=== PATIENT | female | born 1965 | race Caucasian/White ===

== ENCOUNTER 2022-11-15 10:27 | Outpatient (CLI) | payer OTHER, SELFPAY ==
[2022-11-15 19:09] LABS: Basophils Absolute Auto 0.1 K/mm3 (0.0-0.1); Basophils Percent Auto 0.8 % (0.2-1.2); Eosinophils Absolute Auto 0.4 K/mm3 (0-0.3); Eosinophils Percent Auto 3.9 % (0-4.4); Hematocrit 44.1 % (37.0-47.0); Hemoglobin 14.2 g/dL (12.0-15.0); Immature Granulocyte Absolute 0.02 K/mm3 (0.00-0.031); Immature Granulocyte Percent A 0.2 % (0-0.5); Lymphocytes Absolute Auto 2.68 K/mm3 (0.9-3.2); Lymphocytes Percent Auto 29.5 % (18.3-44.2); Mean Corpuscular HGB Conc 32.2 g/dl (32-36); Mean Corpuscular Hemoglobin 32.1 pg (26-34); Mean Corpuscular Volume 99.5 fl (80-100); Mean Platelet Volume 10.1 fl (7.4-10.4); Monocytes Absolute Auto 0.5 K/mm3 (0.1-0.6); Monocytes Percent Auto 5.9 % (2.6-8.5); Neutrophils Absolute Auto 5.4 K/mm3 (1.3-6.7); Neutrophils Percent Auto 59.7 % (45.5-73.1); Platelet Count Result 275 k/mm3 (150-375); Red Blood Count 4.43 M/mm3 (4.2-5.4); Red Cell Distribution Width 13.3 % (11.5-14.5); White Blood Count 9.1 K/mm3 (4.5-10.0)
[2022-11-15 19:13] LABS: Anion Gap 8 mmol/L (8-16); Blood Urea Nitrogen 17 mg/dL (7-17); Calcium 9.2 mg/dL (8.4-10.2); Carbon Dioxide 26 mmol/L (22-30); Chloride 109 mmol/L (98-107); Estimated Glomerular Filt Rate > 60; Glucose 75 mg/dL (65-110); Potassium 4.3 mmol/L (3.4-5.0); Sodium 143 mmol/L (137-145)
== END 2022-11-15 10:28 | disposition home or self-care (01) ==
LOC: ANHGOSHLAB 10:39
PROVIDERS: Visit Provider Neurological Surgery
DX: G89.4 Chronic pain syndrome (principal); M96.1 Postlaminectomy syndrome, not elsewhere classified
CPT/HCPCS: 36415; 80048; 85025

== ENCOUNTER 2025-04-07 13:34 | Emergency (ER) | payer MEDICAID, SELFPAY ==
[2025-04-07] VITALS (20 sets, daily range): BP systolic 70–124; BP diastolic 52–84; PULSE 51–94; RESP 11–22; TEMP 36.7; O2SAT 90–100
--- NOTE | ~2025-04-07 | XR_ITS ---
CHEST RADIOGRAPH CLINICAL HISTORY: shortness of breath . COMPARISON: None available TECHNIQUE: Single portable view of the chest. FINDINGS Spinal stimulator projects over the mediastinum and right upper quadrant. The remainder of the cardiomediastinal silhouette is otherwise unremarkable. The lungs are clear. IMPRESSION: No focal infiltrate or effusion. Reviewed, dictated and finalized at location A.
--- NOTE | 2025-04-07 13:40 | ECG_ITS ---
Test Date: 2025-04-07 14:04:28 Measurements Intervals [place] Rate: 49 P: 60 HI: 146 QRS: 46 QRSD: 105 T: 52 QT: 450 QTc: 409 Interpretive Statements SINUS BRADYCARDIA INCOMPLETE RIGHT BUNDLE BRANCH BLOCK ABNORMAL ECG No previous ECG available for comparison Electronically Signed On 04-07-2025 14:50:01 CDT by Adryan Espinoza D.O.
--- NOTE | 2025-04-07 13:56 | ED.SEIZURE ---
HPI - Seizure General Chief Complaint: Seizure Stated Complaint: seizure Time Seen by Provider: 04/07/25 13:36 History of Present Illness HPI Narrative: This is a 60-year-old female with history of rapid heart rate and remote history of seizures who presents the ED via EMS for seizure. Per EMS, they were called by patient's boyfriend is patient had a seizure the last approximately 2 minutes. Per EMS, on their arrival, patient was longer seizing and was started answering questions appropriately. Patient reports that she was feeling fine today until she began to feel foggy in the head. She states that she slid down against the wall and then does not remember anything after that. She reports that she does feel better at this time. Denies any changes in her medications. He does smoke marijuana daily. Related Data Allergies Allergy/AdvReac Type Severity Reaction Status Date / Time buspirone (From BuSpar) Allergy Severe Anaphylaxis Verified 04/07/25 14:38 fluoxetine (From Prozac) Allergy Severe Anaphylaxis Verified 04/07/25 14:38 Review of Systems Review of Systems: Gen.: Denies fevers or chills Eyes: Denies eye pain or visual change ENT: Denies congestion Respiratory: Denies shortness of breath or cough CV: Denies chest pain or palpitations GI: Denies abdominal pain nausea, emesis or diarrhea denies burning, urgency, frequency or hematuria Musculoskeletal: Denies back pain or muscle pain Neuro: Denies numbness, tingling, weakness or focal weakness Skin: Denies rash Except as documented, all other systems reviewed and negative Exam Narrative: APPEARANCE: No acute distress, nontoxic, resting in bed EYES: EOMI HEENT: Normocephalic, atraumatic, OMM RESPIRATORY: No respiratory distress Clear to auscultation bilaterally with no rhonchi wheezing or rales. CARDIOVASCULAR: Regular rate and rhythm without murmurs rubs or gallops. ABDOMINAL: Soft, nontender, nondistended, no rebound or guarding MUSCULOSKELETAl: Moves all extremities. No clubbing, cyanosis or edema. NEURO: Awake and alert. Following commands, speech normal, no focal deficits SKIN:: Warm, dry. No rashes lesions or abrasions PSYCHIATRIC: Normal affect/mood, Course Vital Signs Vital signs: Vital Signs Pulse Rate 64 04/07/25 13:40 Respiratory Rate 11 L 04/07/25 13:40 Blood Pressure 70/52 L 04/07/25 13:40 Pulse Oximetry 93 04/07/25 13:40 Temperature 98.0 F 04/07/25 13:41 Pulse Rate 65 04/07/25 16:32 Respiratory Rate 18 04/07/25 16:32 Blood Pressure 103/63 04/07/25 16:32 Pulse Oximetry 100 04/07/25 16:32 Oxygen Delivery Room Air 04/07/25 13:41 MDM - Seizure MDM Narrative Medical decision making narrative: 60-year-old female that presented to the ED for seizure activity. On initial evaluation, patient was somewhat lethargic but was answering all questions appropriately. She was noted to be hypotensive to 70/52 with heart rate in the 40s to 50s. BGM normal. She was given 2 L LR with improvement of her blood pressures to 110s/60s. She did have continued improvement of her lethargy. UA positive for cannabinoids. Patient is on metoprolol. It is possible the patient may have had an excessive response to her metoprolol today causing some of her symptoms and and directly causing her to a seizure or seizure-like activity. Patient does feel much better at this time. She does follow with a neurologist which I advised her to seek follow-up with. Patient and андрей were agreeable to this plan. Given strict return precautions. Differential Diagnosis Differential diagnosis: Likely generalized seizure and other (alcohol withdrawal, drug intoxication, electrolyte abnormality, arrhythmia) Lab Data 04/07/25 14:00 04/07/25 14:00 Labs: Lab Results 04/07/25 04/07/25 04/07/25 Range/Units 13:50 14:00 15:41 WBC 7.0 (4.5-10.0) K/mm3 RBC 3.65 L (4.2-5.4) M/mm3 Hgb 11.8 L (12.0-15.0) g/dL Hct 36.5 L (37.0-47.0) % MCV 100.0 (80-100) fl MCH 32.3 (26-34) pg MCHC 32.3 (32-36) g/dl RDW 13.8 (11.5-14.5) % Plt Count 209 (150-375) k/mm3 MPV 9.6 (7.4-10.4) fl Immature Gran % (Auto) 0.3 (0-0.5) % Neut % (Auto) 45.9 (45.5-73.1) % Lymph % (Auto) 43.4 (18.3-44.2) % [place] % (Auto) 5.7 (2.6-8.5) % Eos % (Auto) 3.8 (0-4.4) % Baso % (Auto) 0.9 (0.2-1.2) % Lymph # (Auto) 3.05 (0.9-3.2) K/mm3 [place] # (Auto) 0.4 (0.1-0.6) K/mm3 Eos # (Auto) 0.3 (0-0.3) K/mm3 Baso # (Auto) 0.1 (0.0-0.1) K/mm3 Abs Immat Gran (auto) 0.02 (0.00-0.031) K/mm3 Absolute Neuts (auto) 3.2 (1.3-6.7) K/mm3 Absolute Nucleated RBC 0.000 (0.0-0.012) K/mm3 Nucleated RBC % 0.0 (0.0-0.2) % PT 14.2 (11.1-14.7) Seconds INR 1.1 APTT 32.2 (22.3-36.8) Seconds Sodium 138 (137-145) mmol/L Potassium 4.5 (3.4-5.0) mmol/L Chloride 110 H (98-107) mmol/L Carbon Dioxide 22 (22-30) mmol/L Anion Gap 6 (4-12) mmol/L BUN 11 D (7-17) mg/dL Creatinine 0.94 (0.7-1.0) mg/dL Estim Creat Clear Calc 42 ml/min Estimated GFR > 60 (59 - ) Glucose 109 (65-110) mg/dL POC Capillary Glucose 114 H (65-105) mg/dl Lactic Acid 2.0 (0.7-2.0) mmol/L Calcium 9.0 (8.4-10.2) mg/dL Phosphorus 4.4 (2.5-4.5) mg/dL Total Bilirubin 0.7 (0.2-1.3) mg/dL AST 29 (14-36) U/L ALT 13 (6-35) U/L Alkaline Phosphatase 47 (38-126) U/L C-Reactive Protein < 0.5 (<1.0) mg/dL Total Protein 6.1 L (6.3-8.2) g/dL Albumin 3.5 (3.5-5.1) g/dL Urine Color Yellow (Yellow) Urine Appearance Cloudy H (Clear) Urine pH 7.0 (5.0-9.0) Ur Specific [place] 1.017 (1.001-1.035) Urine Protein Trace (Negative) mg/dL Urine Glucose (UA) Negative (Negative) mg/dL Urine Ketones Negative (Negative) mg/dL Ur Blood (Man) Negative (Negative) Urine Nitrate Negative (Negative) Urine Bilirubin Negative (Negative) Urine Urobilinogen 1.0 (<2.0) mg/dL Leukocyte Esterase Rfl Trace H (Negative) JONEL/UL Urine RBC 0-2 (0-2) /hpf Urine WBC 0-5 (0-3) /hpf Ur Squamous Epith Cells None seen (Few) /hpf Urine Bacteria 4+ /hpf Urine Casts 3-5 Urine Opiates Screen Negative (Negative) Urine Methadone Screen Negative (Negative) Ur Barbiturates Screen Negative (Negative) Ur Phencyclidine Scrn Negative (Negative) Ur Amphetamine Screen Negative (Negative) U Benzodiazepines Scrn Negative (Negative) Urine Cocaine Screen Negative (Negative) U Cannabinoids Screen Positive A (Negative) Imaging Data My impression: Impressions Chest X-Ray 04/07/25 15:07 IMPRESSION: No focal infiltrate or effusion. ECG Data EKG #1: Attestation: I personally reviewed and interpreted this ECG as follows: ECG completion date: 04/07/25 ECG completion time: 14:04 Prior ECG tracings: not available for review EKG Interpretation: bradycardia, sinus rhythm, no ectopy, no ST changes, normal QRS, normal QT, NL axis and no acute changes Discharge Plan Discharge Clinical Impression: Generalized seizure Patient Disposition: Home Condition: Stable Instructions: Antibiotic Form, Generalized Tonic Clonic Seizures (ED) Additional Instructions: Follow up with your neurologist for further evaluation. Patient Language: Danish Follow-up/Referrals: UNKNOWN,DOCTOR [Primary Care Provider] -
[2025-04-07 14:16] LABS: Hematocrit 36.5 % (37.0-47.0); Hemoglobin 11.8 g/dL (12.0-15.0); Immature Granulocyte Percent A 0.3 % (0-0.5); Lymphocytes Absolute Auto 3.05 K/mm3 (0.9-3.2); Mean Corpuscular HGB Conc 32.3 g/dl (32-36); Mean Corpuscular Hemoglobin 32.3 pg (26-34); Mean Corpuscular Volume 100.0 fl (80-100); Nucleated Red Blood Cells Absolute Auto 0.000 K/mm3 (0.0-0.012); Nucleated Red Blood Cells Perc 0.0 % (0.0-0.2); Platelet Count Result 209 k/mm3 (150-375); Red Blood Count 3.65 M/mm3 (4.2-5.4); White Blood Count 7.0 K/mm3 (4.5-10.0)
--- OUTSIDE RECORDS SUMMARY | 2025-04-07 14:21 | XMS_ITS | Encounter Summary ---
Author Organization [facility] Address [address] [place] [address] Phone Care Team Providers Care Intensive Care Unit Registered Nurse Name Role Phone Shereen Urrutia APRN, TELECOM SALES CONSULTANT Unavailable [phone] Michelle Erazo Primary Care Provider + Delfino Smith MD Unavailable Rosey Martin APRN, GLOVE TURNER AND FORMER Unavailable Kathleen Godinez RN Unavailable Unavaila ble Reason for Visit * Reason Comments Medication Refill Encounter Details Date Type Department Care Team (Late st Contact Info) Description 12/04/2022 Refill [facility] - Neurology [facility] [address] [place] [id number] Rosey Martin APRN, GLOVE TURNER AND FORMER [address] [place] [address] Medication Refill Social History Tobacco Use Types Packs/Day Years Used Date Smoking Tobacco: Every Day Cigarettes 1 40 Smokeless Tobacco: Never Alcohol Use Standard Drinks/Week Comments Yes 0 (1 standard drink = 0.6 oz pur e alcohol) social drinking PHQ-2 Answer Date Recorded Total Score - Questions 1-9 0 01/2022 Education Answer Date Recorded What is the highest level of school you have completed or the highest degree you have received? 12th grade 12/28/2021 Sexually Active Control Partners Comments Yes Male Comments No Sex and Gender Information Value Date Recorded Sex Assigned at Not on file Legal Sex Female 2:34 PM CDT Gender Identity Not on file Sexual Orientation Not on file COVID-19 Exposure Response Date Recorded In the last 10 days, have yo u been in contact with someone who was confirmed or suspected to have Coronavirus/COVID-19? No / Unsure 11/18/2022 6:33 AM CDT documented as of this encounter Plan of Treatment Upcoming Encounters Date Type Department Care Team (Late st Contact Info) Description 07/07/2025 3:30 PM RECORD TABULATING CLERK Office Visit [facility] Medical [facility] [address] [place] [address] Michelle Erazo, JUANCARLOS [address] [place] [address] documented as of this encounter Goals Goal Patient Goal Type Associated Problems Recent Progress Patient-Stated? Author I want a way to cope. Learn coping mechanisms. Behavioral Health On track( 022 2:51 PM CDT) Yes Selin Mo, STUDENT DEAN Note: Goal Reviewed today with: patient Readiness to change: Ready to change Department associated with goal: [facility] Steps to achieve goal: will identify at least two coping skills/activities/habits that have helped to manage anxiety in the past within the next 8-10 sessions will identify at least three new coping skills/activities/habits that may help to prevent and/or cope with anxiety within the next 8-10 sessions 3. will identify a plan to implement coping skills and follow this plan for two weeks and evaluate the impact on anxiety within the next 8-10 sessions 4. Will attend individual and/or group therapy at least 1x/month documented as of this encounter Visit Diagnoses Diagnosis Chronic migraine w/o aura w/o status migrainosus, not intractable Chronic migraine without aura, without mention of intractable migraine without mention of status migrainosus documented in this encounter Additional Health Concerns Infection Onset Date Last Indicated Resolved Time COVID - 19 12/22/2022 12/22/2022 01/01/2023 12:1 6 AM CDT Assessment Noted Time PHQ-9 Depression Total Score: 0 12/29/19 22 1:59 PM CDT documented as of this encounter Care Teams Intensive Care Unit Registered Nurse Relationship Specialty Start Date End Date Castro Laurel, PAC [address] [place] [address] PCP - General Physician Title Searcher 10/01/21 Shereen Urrutia APRN, TELECOM SALES CONSULTANT [address] [place] [id number] Obstetrics & Gynecology 07/03/18 Delfino Smith MD [address] [place] [address] Consulting Physician Pulmonary Disease 07/22/23 Rosey Martin APRN, [employer]OVE T[employer]NER [employer] FORMER [address] [place] [address] Nurse Practitioner Advanced Practice Nurse 06/25/23 Kathleen Godinez, RN [place] OnCall Exterior Work Helper 09/01/24 10/20/24 documented as of this encounter
--- OUTSIDE RECORDS SUMMARY | 2025-04-07 14:21 | XMS_ITS | Encounter Summary ---
Author Organization [facility] Address [address] [place] [address] Phone Care Team Providers Care Spring Winder Name Role Phone Shereen Urrutia APRN, DANCE COSTUME DESIGNER Unavailable [phone] Michelle Erazo Primary Care Provider + Delfino Smith MD Unavailable Rosey Martin APRN, GEOGRAPHY PROFESSOR Unavailable Kathleen Godinez RN Unavailable Unavaila ble Reason for Visit * Reason Comments Medication Refill Encounter Details Date Type Department Care Team (Late st Contact Info) Description 09/23/2022 Refill [facility] - Neurology [facility] [address] [place] [id number] Rosey Martin APRN, GEOGRAPHY PROFESSOR [address] [place] [address] Medication Refill Social History Tobacco Use Types Packs/Day Years Used Date Smoking Tobacco: Every Day Cigarettes 0.3 40 Smokeless Tobacco: Never Alcohol Use Standard [...] suspected to have Coronavirus/COVID-19? No / Unsure 09/16/2022 9:06 AM ORDNANCE ENGINEER documented as of this encounter Plan of Treatment Upcoming Encounters Date Type Department Care Team (Late st Contact Info) Description 07/07/2025 3:30 PM ORDNANCE ENGINEER Office Visit [facility] Medical [facility] [address] [place] [address] Michelle Erazo, JUANCARLOS [address] [place] [address] documented as of this encounter Goals Goal Patient Goal Type Associated Problems Recent Progress Patient-Stated? Author I want a way to cope. Learn coping mechanisms. Behavioral Health On track( 022 2:51 PM CDT) Yes Selin Mo, MEDICATION COORDINATOR Note: Goal Reviewed today with: patient Readiness to change: Ready to change Department associated with goal: [facility] Steps to achieve goal: [...] documented as of this encounter Visit Diagnoses Not on filedocumented in this encounter Additional Health Concerns Infection Onset Date Last Indicated Resolved Time COVID - 19 12/22/2022 12/22/2022 01/01/2023 12:1 6 AM CDT Assessment Noted Time PHQ-9 Depression Total Score: 0 12/29/19 22 1:59 PM CDT documented as of this encounter Care Teams Spring Winder Relationship Specialty Start Date End Date Michelle ErazoJUANCARLOS [address] [place] [address] PCP - General Physician Industrial Workers 10/01/21 Shereen Urrutia, BIODIESEL PROCESS CONTROL TECHNICIAN, DANCE COSTUME DESIGNER [address] [place] [address] Obstetrics & Gynecology 07/03/18 Delfino Smith MD [address] [place] [address] Consulting Physician Pulmonary Disease 07/22/23 Rosey Martin, BIODIESEL PROCESS CONTROL TECHNICIAN, GEOGRAPHY PROFESSOR [address] [place] [address] Nurse Practitioner Advanced Practice Nurse 06/25/23 Kathleen Godinez, ETTA [place] OnCall Toy Assembly Supervisor 09/01/24 10/20/24 documented as of this encounter
--- OUTSIDE RECORDS SUMMARY | 2025-04-07 14:21 | XMS_ITS | Encounter Summary ---
Author Organization [facility] Healthcare Address [address] [place] [address] Care Team Providers Care Stock Checker Name Role Phone Krys Banerjee MD Primary Care Provider [phone] Encounter Details Date Type Department Care Team (Late st Contact Info) Description 03/24/2020 Telephone [facility] [address] [place] [address] Royer Espinal, RT Social History Tobacco Use Types Packs/Day Years Used Date Smoking Tobacco: Every Day Cigarettes Smokeless Tobacco: Never Alcohol Use Standard Drinks/Week Comments Not Currently 0 (1 standard drink = 0.6 oz pur e alcohol) 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
--- OUTSIDE RECORDS SUMMARY | 2025-04-07 14:21 | XMS_ITS | Encounter Summary ---
Author Organization [facility] Address [address] [place] [address] Phone Care Team Providers Care Follow Up Rep Name Role Phone Shereen Urrutia APRN, MOLDER SWEEP Unavailable [phone] Michelle Erazo Primary Care Provider + Delfino Smith MD Unavailable Rosey Martin APRN, MEDICAL RECORDS CUSTODIAN Unavailable + [phone] Kathleen Godinez RN Unavailable Unavaila ble Reason for Visit * Reason Comments Medication Refill Encounter Details Date Type Department Care Team (Late st Contact Info) Description 11/06/2022 Refill [facility] Medicine [facility] [address] [place] [address] Michelle Erazo, PAC [address] [place] [address] Medication Refill Social History Tobacco Use Types [...] suspected to have Coronavirus/COVID-19? No / Unsure 11/07/2022 1:48 PM CDT documented as of this encounter Miscellaneous Notes * Telephone Encounter - Darlene Munguia RN - 11/06/2022 12:44 PM CDT Refill requested too soon. documented in this encounter Plan of Treatment Upcoming Encounters Date Type Department Care Team (Late st Contact Info) Description 07/07/2025 3:30 PM ADMINISTRATION PHYSICIAN Office Visit [facility] - Family [facility] [address] [place] [address] Michelle Erazo, [facility] [address] [place] [address] documented as of this encounter Goals Goal Patient Goal Type Associated Problems Recent Progress Patient-Stated? Author I want a way to cope. Learn coping mechanisms. Behavioral Health On track( 022 2:51 PM CDT) Yes Selin Mo, FINISHING ROOM OPERATOR Note: Goal Reviewed today with: patient Readiness to change: Ready to change Department associated with goal: [facility] Steps to achieve [...] as of this encounter Visit Diagnoses Diagnosis Anxiety Anxiety state, unspecified documented in this encounter Additional Health Concerns Infection Onset Date Last Indicated Resolved Time COVID - 19 12/22/2022 12/22/2022 01/01/2023 12:1 6 AM CDT Assessment Noted Time PHQ-9 Depression Total Score: 0 12/29/19 1:59 PM CDT documented as of this encounter Care Teams Follow Up Rep Relationship Specialty Start Date End Date Michelle Erazo PAC [address] [place] [address] PCP - General Physician Physician In Private Practice 10/01/21 Shereen Urrutia APRN, MOLDER SWEEP [address] [place] [address] Obstetrics & Gynecology 07/03/18 Delfino Smith MD [address] [place] [address] Consulting Physician Pulmonary Disease 07/22/23 Rosey Martin APRN, MEDICAL RECORDS CUSTODIAN [address] [place] [address] Nurse Practitioner Advanced Practice Nurse 06/25/23 Kathleen Godinez RN [place] OnCall Makeup Sales Advisor 09/01/24 10/20/24 documented as of this encounter
--- OUTSIDE RECORDS SUMMARY | 2025-04-07 14:21 | XMS_ITS | Clinical Summary ---
Author Organization [facility] Address [address] [place] [address] Care Team Providers Care Meal Attendant Name Role Phone Krys Banerjee MD Primary Care Provider [phone] Allergies Active Allergy Reactions Criticality Noted Date Comments Buspirone Anaphylaxis High 10/14/2018 Fluoxetine Unknown Low 10/14/2018 Sulfa (Sulfonamide Antibiotics) Anaphylaxis High Medications cholecalciferol (VITAMIN D-3) 2,000 unit capsule Take 2,000 Units by mouth 2 (two) times a day 9 Active albuterol HFA (PROVENTIL HFA,VENTOLIN HFA,PROAIR HFA) 90 mcg/actuation inhaler Inhale 4 (four) times a day as needed Active pantoprazole DR (PROTONIX) 40 mg EC tablet Take 40 mg by mouth daily 9 Active fluticasone propionate (FLONASE) 50 mcg/actuation nasal spray Administer 2 sprays into each nostril daily Active aspirin 81 mg chewable tablet Chew 1 tablet every day by oral route. Active EPINEPHrine (EPIPEN) 0.15 mg/0.3 mL injection syringeIndicati ons:Anaphylaxis Inject 1 Syringe into the muscle as instructed Active buPROPion (WELLBUTRIN) 100 mg tablet Take 100 mg by mouth 2 (two) times a day Active lovastatin (MEVACOR) 20 mg tablet Take 20 mg by mouth nightly Active aspirin-dipyrid amole (AGGRENOX) 25-200 mg per 12 hr capsuleIndicati ons:Prevention of Cerebral Thrombosis Take 1 capsule by mouth 2 (two) times a day Active cyanocobalamin (Vitamin B-12) 100 mcg tabletIndicatio ns:Prevention of Vitamin B12 Deficiency Take 200 mcg by mouth daily Active naproxen (NAPROSYN) 375 mg tablet Take 1 tablet (375 mg total) by mouth 2 (two) times a day with meals P.r.n. pain. Collaborating physician Sumeet Ibarra MD 20 tablet 1 Active acetaminophen (TYLENOL) 500 mg tablet Take 2 tablets (1,000 mg total) by mouth every 8 (eight) hours as needed for pain for up to 20 doses 40 tablet 1 Active topiramate (TOPAMAX) 50 mg tabletIndicatio ns:Chronic migraine without aura without status migrainosus, not intractable TAKE 1 TABLET BY MOUTH TWICE A DAY 60 tablet 3 2 Active Active Problems Problem Noted Date Diagnosed Date Sprain of right knee 12/21/2020 Screen for colon cancer 11/02/2020 Overview (11/02/2020): Added automatically from request for surgery [id number] Asthma 07/03/2020 DDD (degenerative disc disease), lumbosacral 04/2020 Depression 07/03/2020 Iron deficiency 07/03/2020 Migraines 07/03/2020 Osteoporosis 07/03/2020 Rapid heart rate 07/03/2020 Pain in both lower extremities 05/24/2020 Chronic migraine without aur a without status migrainosus, not intractable 04/26/2020 Occipital neuralgia of left side 04/26/2020 Cannabis dependence, continuous 08/02/2019 Female stress incontinence 08/02/2019 GERD (gastroesophageal reflux disease) 9 Assessment & Plan (03/27/2021 2:19 PM CDT): egd History of migraine 08/02/2019 RLS (restless legs syndrome) 08/02/2019 Xerosis cutis 05/07/2019 Radiculopathy, cervical 01/04/2019 Overview (01/04/2019): Added automatically from request for surgery [id number] Pain of breast 12/22/2018 Pain in pelvis 12/22/2018 History of fusion of cervical spine 11/04/2018 Cannabis abuse 10/15/2018 Major depressive disorder, r ecurrent episode, moderate with anxious distress 08/11/2018 Surgical History Surgery Date Site/Laterality Comments CARPAL TUNNEL RELEASE Bilateral CERVICAL FUSION x 2 HYSTERECTOMY DIAGNOSTIC LAPAROSCOPY x 3 SPINE SURGERY Fusion x2 SPINAL CORD STIMULATOR IMPLANT COLONOSCOPY 12/25/2020 1st Medical History Medical History Date Comments Hypotension Tachycardia Cardiac Catheriz ation and work-up negative, done [place] Hyperlipidemia Asthma GERD (gastroesophageal reflux disease) Peptic ulceration 1987 Depression Arthritis Generalized Osteoarthritis Back OCD (obsessive compulsive disorder) Migraine COPD (chronic obstructive pu lmonary disease) Family History Medical History Relation Name Comments Stroke Mother Relation Name Status Comments Mother Social History Tobacco Use Types Packs/Day Years Used Date Smoking Tobacco: Every Day Cigarettes Smokeless Tobacco: Never Tobacco Cessation:Ready to Q uit: Yes; Counseling Given: Yes Alcohol Use Standard Drinks/Week Comments Not Currently 0 (1 standard drink = 0.6 oz pur e alcohol) 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 PHQ-2 Answer Date Recorded PHQ-2 Total Score (If total score is 3 or more points, staff should administer the PHQ-9) 2 11/30/2020 Personal Safety Answer Date Recorded Getting School Help Needed Not on file 10/25 Comments No Sex and Gender Information Value Date Recorded Sex Assigned at Not on file Legal Sex Female 3:26 PM SECURITY TECHNICIAN Gender Identity Not on file Sexual Orientation Not on file Obstetrics History Para Term AB IAB SAB Ectopic Multiple Livin g Live Births 4 3 3 0 1 0 1 0 0 3 3 Date Outcome GA Total Labor Labor/2nd/3rd Weight Sex Type Anes PTL Cathryn A1 A5 Name Clin Term Term Term SAB Last Filed Vital Signs Vital Sign Reading Time Taken Comments Blood Pressure 136/84 04/30/2021 4:45 AM CDT Pulse 74 04/30/2021 4:45 AM CDT Temperature 36.5 C (97.7 F) 04/30/2021 1:47 AM CDT Respiratory Rate 18 04/30/2021 4:45 AM CDT Oxygen Saturation 98% 04/30/2021 4:45 AM CDT Inhaled Oxygen Concentration - - Weight 49.9 kg (110 lb) 04/30/2021 1:47 AM CDT Height 160 cm (5' 3) 04/30/2021 1:47 AM CDT Body Mass Index 19.49 04/30/2021 1:47 AM CDT Plan of Treatment Health Maintenance Due Date Last Done Comments Hepatitis C Screening 1965 Hepatitis B Screening 1983 Regular Well Visit/Exam 18-64 1983 Zoster Vaccine (1 of 2) 2015 Depression Screening 11/30/2021 11/30/2020 Covid-19 Vaccine (4 - 2023-2 5 season) 2024 10/13/2021, 04/16/2021, 03/26/2021 Breast Cancer Screening-Mammogram 01/20/2025 01/21/2024, 01/21/2024, 12/06/2021 Influenza Vaccine (#1) 2025 , 09/16/2022, 09/18/2021, Additional history exists Colon Cancer Screening-Colonoscopy 12/25/2030 12/25/2020 DTaP/Tdap/Td Vaccine (5 - Td or Tdap) 04/19/2034 04/19/2024, 03/13/2023, 12/12/2019, Additional history exists Colon Cancer Screening-CT Colonography Discontinued 12/25/2020 Colon Cancer Screening-DNA Stool Discontinued 12/26/19 Colon Cancer Screening-FIT Discontinued 12/25/2020 Colon Cancer Screening-Sigmoidoscopy Discontinued 12/25/2020 Pneumococcal vaccine <65 Completed 10/15/2022, 04/2018 Medical Devices Implanted Type Area Campus Executive Director Device Identifier Shelf Expiration Date Model / Serial / Lot [employer] [id number] Octrode 90cm 8 Electrode 3mm 4mm Space Lead Neurostimulator - [id number] - [id number] Implanted:Qty: 1 on 02/05/2019 by Jason Cruz MD at [facility] N/A: Cervical -Thoraci c Spine [employer] 12/07/2020 [id number] / [id number] / [employer] 3189ans Octrode 90cm 8 Electrode 3mm 4mm Space Lead Neurostimulator - [id number] - [id number] Implanted:Qty: 1 on 02/05/2019 by Jason Cruz MD at [facility] N/A: Cervical -Thoraci c Spine [employer] 11/11/2020 [id number] / [id number] / [employer] 1192 Murphy-Lock [place] Lead - [id number] Implanted:Qty: 2 on 02/05/2019 by Jason Cruz MD at [facility] N/A: Cervical -Thoraci c Spine [employer] 10/18/2020 1192 / / [id number] [employer] 3660 Contrlsys Proclaim Elite 4.95cmx5.55cm 5 Implantable Pulse Tonic - [id number] - [id number] Implanted:Qty: 1 on 02/05/2019 by Jason Cruz MD at [facility] N/A: Cervical -Thoraci c Spine [employer] 10/12/2020 3660 CONTRLSYS / [id number] / Procedures Procedure Name Priority Date/Time Associated Diagnosis Comments COLONOSCOPY 12/25/2020 8:42 AM CDT from Last 3 Months or Most Recently Relevant to Health Maintenance Results * COLONOSCOPY (12/25/2020 8:42 AM CDT) Anatomical Region Laterality Modality Other Narrative Procedure Note Sumeet Alegria MD - 12/25/2020 8:42 AM CDT [facility] Patient Name: Michelle Adkins Procedure Date: 12/25/2020 8:42 AM Date of : 1965 Admit Type: Outpatient Age: 55 Gender: Female Attending MD: Sumeet Alegria M.D. Room: [facility] ENDOSCOPY ROOM 2 Note Status: Finalized Patient Profile: Refer to note in patient chart for documentation of history and physical. Procedure: Colonoscopy Indications: Screening for colorectal malignant neoplasm, Thisis the patient's first colonoscopy Referring MD: Krys Banerjee M.D. Providers: Sumeet Alegria M.D. Impression: - Hemorrhoids found on perianal exam. - The entire examined colon is normal. - No specimens collected. Recommendation: - Discharge patient to home. - Resume previous diet. - Continue present medications. - Repeat colonoscopy in 10 years for screening purposes. - Return to primary care physician as previously scheduled. Medicines: Propofol per Anesthesia Complications: No immediate complications. Estimated Blood Loss: Estimated blood loss: none. Procedure: Pre-Anesthesia Assessment: - This assessment was completed [Time ofAssessment] prior to the administration of sedation. The benefits, risks and alternatives of theprocedure and sedation were discussed and informed consentwas obtained. All questions were answered. Please referto the signed informed consent document in the medical record. The bowel preparation used was Miralax and bisacodyl tablets via single dose instruction. The scope was passed under direct vision. TheColonoscope [id number] was introduced through the anus and advanced to the the cecum, identified by appendiceal orifice and ileocecal valve. The colonoscopy was performed without difficulty. The patient tolerated the procedure well. The qualityof the bowel preparation was excellent. Findings: Hemorrhoids were found on perianal exam. The colon (entire examined portion) appeared normal. Electronically signed by Sumeet Alegria M.D. Sumeet Alegria M.D. 12/25/2020 10:35:47 AM Number of Addenda: 0 Note Initiated On: 12/25/2020 8:42 AM Procedure Code(s): --- Professional --- G0121, Colorectal cancer screening; colonoscopy on individual not meeting criteria for high risk Diagnosis Code(s): --- Professional --- K64.9, Unspecified hemorrhoids Z12.11, Encounter for screening for malignant neoplasm of colon CPT copyright 2019 [employer]. All rights reserved. The codes documented in this report are preliminary and upon benefits clerk reviewmay be revised to meet current compliance requirements. Recognized by the [employer] Society [employer] for promoting quality in endoscopy Sumeet Alegria MD ENDOSCOPY PROCEDURES Final Re sult from Last 3 Months or Most Recently Relevant to Health Maintenance Insurance MEDICARE [facility] MEDICARE HMO [employer] CHOICE MEDICARE PPO [facility] MEDICARE [facility] MEDICARE ADVANTAGE Advance Directives For more information, please contact: [phone] * Full Code (Latest Code Status on File) Date Activated Date Inactivated Comments 04/27/2021 7:32 AM 04/27/2021 1:13 PM * Full Code Date Activated Date Inactivated Comments 04/27/2021 7:32 AM 04/27/2021 7:32 AM * Full Code Date Activated Date Inactivated Comments 12/25/2020 9:20 AM 12/25/2020 3:26 PM * Full Code Date Activated Date Inactivated Comments 02/05/2019 11:50 AM 02/05/2019 4:06 PM Care Teams Meal Attendant Relationship Specialty Start Date End Date Krys Banerjee MD PCP - General Internal Medicine 09/01/19
--- OUTSIDE RECORDS SUMMARY | 2025-04-07 14:21 | XMS_ITS | Encounter Summary ---
Author Organization [facility] Address [address] [place] [address] Phone Care Team Providers Care Public Health Nurse Name Role Phone Shereen Urrutia APRN, CLEANERS Unavailable [phone] Michelle Erazo Primary Care Provider + Delfino Smith MD Unavailable Rosey Martin APRN, MOVIE PRODUCER Unavailable Kathleen Godinez RN Unavailable Unavaila ble Reason for Visit * Reason Comments Medication Refill Encounter Details Date Type Department Care Team (Late st Contact Info) Description 09/14/2022 Refill [facility] - Neurology [facility] [address] [place] [id number] Rosey Martin APRN, MOVIE PRODUCER [address] [place] [address] Medication Refill Social History Tobacco Use Types [...] Coronavirus/COVID-19? No / Unsure 09/16/2022 9:06 AM WHITE GOODS APPLIANCE TECH documented as of this encounter Plan of Treatment Upcoming Encounters Date Type Department Care Team (Late st Contact Info) Description 07/07/2025 3:30 PM WHITE GOODS APPLIANCE TECH Office Visit [facility] [address] [place] [address] Michelle Erazo, JUANCARLOS [address] [place] [address] documented as of this encounter Goals Goal Patient Goal Type Associated Problems Recent Progress Patient-Stated? Author I want a way to cope. Learn coping mechanisms. Behavioral Health On track( 022 2:51 PM CDT) Yes Selin Mo, TAX ASSOCIATE Note: Goal Reviewed today with: patient Readiness to change: Ready to change Department associated with goal: [facility] Steps to achieve [...] as of this encounter Visit Diagnoses Diagnosis RLS (restless legs syndrome) Restless legs syndrome (RLS) documented in this encounter Additional Health Concerns Infection Onset Date Last Indicated Resolved Time COVID - 19 12/22/2022 12/22/2022 01/01/2023 12:1 6 AM CDT Assessment Noted Time PHQ-9 Depression Total Score: 0 12/29/19 22 1:59 PM CDT documented as of this encounter Care Teams Public Health Nurse Relationship Specialty Start Date End Date Michelle Erazo PAC [address] [place] [address] PCP - General Physician Network Coordinator 10/01/21 Shereen Urrutia APRN, CLEANERS [address] [place] [address] Obstetrics & Gynecology 07/03/18 Delfino Smith MD [address] [place] [id number] Consulting Physician Pulmonary Disease 07/22/23 Rosey Martin APRN, MOVIE PRODUCER [address] [place] [address] Nurse Practitioner Advanced Practice Nurse 06/25/23 Kathleen Godinez, RN [place] OnCall Fleet Assistant 09/01/24 10/20/24 documented as of this encounter
--- OUTSIDE RECORDS SUMMARY | 2025-04-07 14:21 | XMS_ITS | Encounter Summary ---
Author Organization [facility] Healthcare Address [address] [place] [address] Care Team Providers Care Anglesmith Name Role Phone Krys Banerjee MD Primary Care Provider [phone] Reason for Visit * Reason Onset Date Comments Scheduling Appointments 01/11/2021 Confirmi ng mammogram appt Encounter Details Date Type Department Care Team (Late st Contact Info) Description 01/11/2021 Telephone [facility] [address] [place] [address] Harleen Turcios RT Scheduling Appointments (Confirming mammogram appt) Social History Tobacco Use Types Packs/Day Years Used Date Smoking Tobacco: Every Day Cigarettes Smokeless Tobacco: Never Alcohol Use Standard Drinks/Week Comments Not Currently 0 (1 standard drink = 0.6 oz pur e alcohol) 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 PHQ-2 Answer Date Recorded PHQ-2 Total Score (If total score is 3 or more points, staff should administer the PHQ-9) 2 11/30/2020 Comments No Sex and Gender Information Value Date Recorded Sex Assigned at Not on file Legal Sex Female 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
--- OUTSIDE RECORDS SUMMARY | 2025-04-07 14:21 | XMS_ITS | Encounter Summary ---
Author Organization [facility] Address [address] [place] [address] Phone Care Team Providers Care Sandwich Hand Name Role Phone Shereen Urrutia APRN, EXPANSION JOINT BUILDER Unavailable [phone] Michelle Erazo Primary Care Provider + Delfino Smith MD Unavailable Rosey Martin APRN, PREDATORY ANIMAL HUNTER Unavailable Kathleen Godinez RN Unavailable Unavaila ble Reason for Visit * Reason Comments Medication Refill Encounter Details Date Type Department Care Team (Late st Contact Info) Description 09/06/2022 Refill [facility] - Neurology [facility] [address] [place] [phone] Rosey Martin APRN, PREDATORY ANIMAL HUNTER [address] [place] [address] Medication Refill Social History Tobacco Use Types [...] suspected to have Coronavirus/COVID-19? No / Unsure 09/04/2022 12:59 PM PARACHUTE OFFICER documented as of this encounter Plan of Treatment Upcoming Encounters Date Type Department Care Team (Late st Contact Info) Description 07/07/2025 3:30 PM PARACHUTE OFFICER Office Visit [facility] Medical [facility] [address] [place] [address] Michelle Erazo, JUANCARLOS [address] [place] [address] documented as of this encounter Goals Goal Patient Goal Type Associated Problems Recent Progress Patient-Stated? Author I want a way to cope. Learn coping mechanisms. Behavioral Health On track( 022 2:51 PM CDT) Yes Selin Mo, CENTRAL SUPPLY WORKER Note: Goal Reviewed today with: patient Readiness to change: Ready to change Department associated with goal: [facility] Steps to [...] documented as of this encounter Care Teams Sandwich Hand Relationship Specialty Start Date End Date Castro Laurel, PAC [address] [place] [address] PCP - General Physician Scrubber Machine Tender 10/01/21 Shereen Urrutia APRN, EXPANSION JOINT BUILDER [address] [place] [address] Obstetrics & Gynecology 07/03/18 Delfino Smith MD [address] [place] [address] Consulting Physician Pulmonary Disease 07/22/23 Rosey Martin APRN, PREDATORY ANIMAL HUNTER [address] [place] [address] Nurse Practitioner Advanced Practice Nurse 06/25/23 Kathleen Godinez, RN [place] OnCall Telephone Order Clerk 09/01/24 10/20/24 documented as of this encounter
--- OUTSIDE RECORDS SUMMARY | 2025-04-07 14:21 | XMS_ITS | Encounter Summary ---
Author Organization [facility] Address [address] [place] [address] Phone Care Team Providers Care Firer Kiln Name Role Phone Shereen Urrutia APRN, LIGHTNING PROTECTION INSTALLER Unavailable [phone] Michelle Erazo Primary Care Provider + Delfino Smith MD Unavailable Rosey Martin APRN, SENIOR QUALITY ASSURANCE ENGINEER Unavailable Kathleen Godinez RN Unavailable Unavaila ble Reason for Visit * Reason Comments Medication Refill Encounter Details Date Type Department Care Team (Late st Contact Info) Description 01/30/2022 Refill [facility] - Neurology [facility] [address] [place] [phone] Rosey Martin APRN, SENIOR QUALITY ASSURANCE ENGINEER [address] [place] [address] Medication Refill Social History Tobacco Use Types [...] suspected to have Coronavirus/COVID-19? No / Unsure 02/01/2022 2:23 PM CDT documented as of this encounter Plan of Treatment Upcoming Encounters Date Type Department Care Team (Late st Contact Info) Description 07/07/2025 3:30 PM VP CORPORATE PARTNERSHIPS Office Visit [facility] [address] [place] [address] Michelle Erazo, JUANCARLOS [address] [place] [address] documented as of this encounter Goals Goal Patient Goal Type Associated Problems Recent Progress Patient-Stated? Author I want a way to cope. Learn coping mechanisms. Behavioral Health On track( 022 2:51 PM CDT) Yes Selin Mo, BARREL RIFLER BUTTON Note: Goal Reviewed today with: patient Readiness to change: Ready to change Department associated with goal: [facility] Steps to achieve [...] documented as of this encounter Care Teams Firer Kiln Relationship Specialty Start Date End Date Michelle Erazo, [facility] [address] [place] [address] PCP - General Physician Flight Test Data Acquisition Technician 10/01/21 Shereen Urrutia, SUPERVISOR ERECTION SHOP, LIGHTNING PROTECTION INSTALLER [address] [place] [address] Obstetrics & Gynecology 07/03/18 Delfino Smith MD [address] [place] [address] Consulting Physician Pulmonary Disease 07/22/23 Rosey Martin, SUPERVISOR ERECTION SHOP, SENIOR QUALITY ASSURANCE ENGINEER [address] [place] [address] Nurse Practitioner Advanced Practice Nurse 06/25/23 Kathleen Godinez, ETTA [place] OnCall Physiologist 09/01/24 10/20/24 documented as of this encounter
--- OUTSIDE RECORDS SUMMARY | 2025-04-07 14:21 | XMS_ITS | Encounter Summary ---
Author Organization [facility] Address [address] [place] [address] Phone Care Team Providers Care Brazer Controlled Atmospheric Furnace Name Role Phone Shereen Urrutia APRN, DATA MANAGEMENT ASSOCIATE Unavailable [phone] Michelle Erazo Primary Care Provider + Delfino Smith MD Unavailable Rosey Martin APRN, LANDSCAPE HORTICULTURE INSTRUCTOR Unavailable + [phone] Kathleen Godinez RN Unavailable Unavaila ble Reason for Visit * Reason Comments Medication Refill Encounter Details Date Type Department Care Team (Late st Contact Info) Description 07/13/2023 Refill [facility] - Family Medicine [facility] [address] [place] [address] Michelle Erazo, PAC [address] [place] [address] Medication Refill Social History Tobacco Use Types Packs/Day Years Used Date Smoking Tobacco: Every Day Cigarettes 1 40 Smokeless Tobacco: Never Alcohol Use Standard Drinks/Week Comments Yes 0 (1 standard drink = 0.6 oz pur e alcohol) social drinking PHQ-2 Answer Date Recorded Total Score - Questions 1-9 0 12/25 Education Answer Date Recorded What is the [...] suspected to have Coronavirus/COVID-19? No / Unsure 06/27/2023 8:50 AM CDT documented as of this encounter Miscellaneous Notes * Telephone Encounter - Ana Herbert RN - 07/14/2023 8:16 AM CST Name from pharmacy: ATORVASTATIN 20 MG TABLET Will file in chart as: atorvastatin (LIPITOR) 20 MG Tablet The original prescription was discontinued on 01/22/2023 by Tasneem Acevedo RN for the followingreason: Dose adjustment. Taking 40 mg daily OR FINANCE MANAGER documented in this encounter Plan of Treatment Upcoming Encounters Date Type Department Care Team (Late st Contact Info) Description 07/07/2025 3:30 PM SENIOR FINANCE MANAGER Office Visit [facility] Medical [facility] [address] [place] [address] Michelle Erazo, JUANCARLOS [address] [place] [address] documented as of this encounter Goals Goal Patient Goal Type Associated Problems Recent Progress Patient-Stated? Author I want a way to cope. Learn coping mechanisms. Behavioral Health On track( 022 2:51 PM CDT) Yes Selin Mo, TAP AND DIE MAKER TECHNICIAN Note: Goal Reviewed today with: patient Readiness to change: Ready to change Department associated with goal: [facility] Steps to achieve [...] as of this encounter Visit Diagnoses Diagnosis Hyperlipidemia, unspecified hyperlipidemia type documented in this encounter Additional Health Concerns Assessment Noted Time PHQ-9 Depression Total Score: 0 01/22/20 23 8:00 AM CDT documented as of this encounter Care Teams Brazer Controlled Atmospheric Furnace Relationship Specialty Start Date End Date Michelle Erazo PAC [address] [place] [address] PCP - General Physician Active Directory Systems Administrator 10/01/21 Shereen Urrutia APRN, DATA MANAGEMENT ASSOCIATE [address] [place] [address] Obstetrics & Gynecology 07/03/18 Delfino Smith MD [address] [place] [address] Consulting Physician Pulmonary Disease 07/22/23 Rosey Martin APRN, LANDSCAPE HORTICULTURE INSTRUCTOR [address] [place] [address] Nurse Practitioner Advanced Practice Nurse 06/25/23 Kathleen Godinez RN [place] OnCall Extension Course Counselor 09/01/24 10/20/24 documented as of this encounter
--- OUTSIDE RECORDS SUMMARY | 2025-04-07 14:21 | XMS_ITS | Encounter Summary ---
Author Organization [facility] Address [address] [place] [address] Phone Care Team Providers Care Gravity Meter Observer Name Role Phone Shereen Urrutia APRN, SOAP MAKER Unavailable [phone] Michelle Erazo Primary Care Provider + Delfino Smith MD Unavailable Rosey Martin APRN, SHANK THREADER Unavailable Kathleen Godinez RN Unavailable Unavaila ble Reason for Visit * Reason Comments Medication Refill Encounter Details Date Type Department Care Team (Late st Contact Info) Description 08/17/[address] [facility] - Neurology [facility] #2 [place] [id number] Rosey Martin APRN, SHANK THREADER [address] [place] [address] Medication Refill Social History Tobacco Use Types [...] suspected to have Coronavirus/COVID-19? No / Unsure 08/07/2022 2:18 PM POWER PLANT SUPERINTENDENT documented as of this encounter Plan of Treatment Upcoming Encounters Date Type Department Care Team (Late st Contact Info) Description 07/07/2025 3:30 PM POWER PLANT SUPERINTENDENT Office Visit [facility] Medical [facility] [place] #[address] [place] [address] Michelle Erazo, JUANCARLOS [address] [place] [address] documented as of this encounter Goals Goal Patient Goal Type Associated Problems Recent Progress Patient-Stated? Author I want a way to cope. Learn coping mechanisms. Behavioral Health On track( 022 2:51 PM CDT) Yes Selin Mo, INTERACTIVE PRODUCER Note: Goal Reviewed today with: patient Readiness [...] intractable migraine without mention of status migrainosus RLS (restless legs syndrome) Restless legs syndrome (RLS) documented in this encounter Additional Health Concerns Infection Onset Date Last Indicated Resolved Time COVID - 19 12/22/2022 12/22/202201/0101/01/2023 12:1 6 AM CDT Assessment Noted Time PHQ-9 Depression Total Score: 0 12/29/19 1:59 PM CDT documented as of this encounter Care Teams Gravity Meter Observer Relationship Specialty Start Date End Date Michelle Erazo PAC [address] [place] [address] PCP - General Physician Chief Optometry Service 10/01/21 Shereen Urrutia, SPA EXPERIENCE COORDINATOR, SOAP MAKER [address] [place] [address] Obstetrics & Gynecology 07/03/18 Delfino Smith MD [address] [place] [address] Consulting Physician Pulmonary Disease 07/22/23 Rosey Martin, SPA EXPERIENCE COORDINATOR, SHANK THREADER [address] [place] [address] Nurse Practitioner Advanced Practice Nurse 06/25/23 Kathleen Godinez RN [place] OnCall Stretcher Helper 09/01/24 10/20/24 documented as of this encounter
--- OUTSIDE RECORDS SUMMARY | 2025-04-07 14:21 | XMS_ITS | Encounter Summary ---
Author Organization [facility] Address [address] [place] [address] Phone Care Team Providers Care Edge Brusher Name Role Phone Shereen Urrutia APRN, DATA CONVERSION OPERATOR Unavailable [phone] Michelle Erazo Primary Care Provider + Delfino Smith MD Unavailable Rosey Martin APRN, BLASTING HELPER Unavailable + [phone] Kathleen Godinez RN Unavailable Unavaila ble Reason for Visit * Reason Comments Medication Refill Encounter Details Date Type Department Care Team (Late st Contact Info) Description 04/08/2023 Refill [facility] Medical Group - Family Medicine [facility] [address]2 [place] [address] Michelle Erazo, PAC [address] [place] [address] Medication Refill Social History Tobacco Use Types [...] suspected to have Coronavirus/COVID-19? No / Unsure 04/02/2023 9:05 PM CDT documented as of this encounter Miscellaneous Notes * Telephone Encounter - Evie Montano RN - 04/08/2023 1:54 PM CDT Images from the original note were not included. Refill request too soon. hydrOXYzine HCl Dispensed Days Supply Quantity Provider Pharmacy HYDROXYZINE HCL 25 MG TABLET 03/17/2023 30 90 Each Michelle Erazo PAC [id number]... documented in this encounter Plan of Treatment Upcoming Encounters Date Type Department Care Team (Late st Contact Info) Description 07/07/2025 3:30 PM INFORMATION RESOURCE CONSULTANT Office Visit [facility] Medical [facility] [address]2 [place] [address] Michelle Erazo PAC [address] [place] [address] documented as of this encounter Goals Goal Patient Goal Type Associated Problems Recent Progress Patient-Stated? Author I want a way to cope. Learn coping mechanisms. Behavioral Health On track( 022 2:51 PM CDT) Yes Selin Mo, UNDERTAKER ASSISTANT Note: Goal Reviewed today with: patient Readiness to change: Ready to change Department associated with goal: [facility] Steps to achieve goal: [...] documented as of this encounter Care Teams Edge Brusher Relationship Specialty Start Date End Date Michelle Erazo PAC [address] [place] [address] PCP - General Physician Ruling Technician 10/01/21 Shereen Urrutia APRN, DATA CONVERSION OPERATOR [address] [place] [address] Obstetrics & Gynecology 07/03/18 Delfino Smith MD [address] [place] [address] Consulting Physician Pulmonary Disease 07/22/23 Rosey Martin APRN, BLASTING HELPER [address] [place] [address] Nurse Practitioner Advanced Practice Nurse 06/25/23 Kathleen Godinez RN [place] OnCall Increment Manager 09/01/24 10/20/24 documented as of this encounter
--- OUTSIDE RECORDS SUMMARY | 2025-04-07 14:21 | XMS_ITS | Encounter Summary ---
Author Organization [facility] Address [address] [place] [address] Phone Care Team Providers Care Diamond Sizer And Sorter Name Role Phone Shereen rUrutia APRN, PARCEL POST CARRIER Unavailable [phone] Krys Banerjee MD Primary Care Provider [phone] Michelle Erazo Primary Care Provider + Delfino Smith MD Unavailable Rosey Martin STOGY MAKER, DIRECTOR SERVICE Unavailable + [phone] Kathleen Godinez RN Unavailable Unavaila ble Reason for Visit * Reason Comments Medication Refill Encounter Details Date Type Department Care Team (Late st Contact Info) Description 09/25/2020 [facility]ill [facility] [place] #1 [facility] [place] [address] Justice Rae MD [address] [place] [address] Medication Refill Social History Tobacco Use Types Packs/Day Years Used Date Smoking Tobacco: Every Day Cigarettes Smokeless Tobacco: Never Alcohol Use Standard Drinks/Week Comments Not Currently 0 (1 standard drink = 0.6 oz pure alcohol) recovering alcoholic, 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 PHQ-2 Answer Date Recorded PHQ-2 Score 0 06/02/2019 Sexually Active Control Partners Comments Yes Male Comments No Sex and Gender Information Value Date Recorded Sex Assigned at Not on file Legal Sex Female 2:34 PM CDT Gender Identity Not on file Sexual Orientation Not on file documented as of this encounter Plan of Treatment Upcoming Encounters Date Type Department Care Team (Late st Contact Info) Description 07/07/2025 3:30 PM COGENERATION OPERATOR Office Visit [facility] Medical Group [facility] #2 [place] [address] Michelle Erazo PAC [address] [place] [address] documented as of this encounter Visit Diagnoses Not on filedocumented in this encounter Additional Health Concerns Infection Onset Date Last Indicated Resolved Time COVID - 19 12/22/2022 12/22/2022 01/01/2023 12:1 6 AM CDT Assessment Noted Time PHQ-9 Depression Total Score: 0 06/02/20 19 1:00 PM CDT documented as of this encounter Care Teams Diamond Sizer And Sorter Relationship Specialty Start Date End Date Krys Banerjee MD [address] [place] [address] PCP - General Internal Medicine 04/10/20 09/30/21 Michelle Erazo, PAC [address] [place] [address] PCP - General Physician Computer Software Engineer 10/01/21 Shereen Urrutia STOGY MAKER, PARCEL POST CARRIER [address] [place] [address] Obstetrics & Gynecology 07/03/18 Delfino Smith MD [address] [place] [address] Consulting Physician Pulmonary Disease 07/22/23 Rosey Martin APRN, DIRECTOR SERVICE [address] [place] [address] Nurse Practitioner Advanced Practice Nurse 06/25/23 Kathleen Godinez, RN [place] OnCall Assembler Semiconductor 09/01/24 10/20/24 documented as of this encounter
--- OUTSIDE RECORDS SUMMARY | 2025-04-07 14:21 | XMS_ITS | Encounter Summary ---
Author Organization [facility] Address [address] [place] [address] Phone Care Team Providers Care Pattern Lease Inspector Name Role Phone Shereen Urrutia APRN, SOAP GRINDER Unavailable [phone] Michelle Erazo Primary Care Provider + Delfino Smith MD Unavailable Rosey Martin APRN, WAIST CUTTER Unavailable + [phone] Kathleen Godinez RN Unavailable Unavaila ble Reason for Visit * Reason Comments Medication Refill Encounter Details Date Type Department Care Team (Late st Contact Info) Description 07/18/[address] [facility] Medical Group - Family Medicine [facility] [address] [place] [address] Michelle Erazo PAC [address] [place] [address] Medication Refill Social History Tobacco Use Types Packs/Day Years Used Date Smoking Tobacco: Every Day Cigarettes 0.5 40 Smokeless Tobacco: Never Alcohol Use Standard [...] suspected to have Coronavirus/COVID-19? No / Unsure 06/25/2022 12:51 PM CDT documented as of this encounter Miscellaneous Notes * Telephone Encounter - Darlene Munguia RN - 07/19/2022 7:41 AM PASTA PRESS OPERATOR Refill requested too soon. A PRESS OPERATOR documented in this encounter Plan of Treatment Upcoming Encounters Date Type Department Care Team (Late st Contact Info) Description 07/07/2025 3:30 PM PASTA PRESS OPERATOR Office Visit [facility] Medical [facility] [address] [place] [address] Michelle Erazo, [facility] [address] [place] [address] documented as of this encounter Goals Goal Patient Goal Type Associated Problems Recent Progress Patient-Stated? Author I want a way to cope. Learn coping mechanisms. Behavioral Health On track( 022 2:51 PM CDT) Yes Selin Mo, SUBSTITUTE BUS DRIVER Note: Goal Reviewed today with: patient Readiness to change: Ready to change Department associated with goal: [facility] Steps to achieve [...] documented as of this encounter Care Teams Pattern Lease Inspector Relationship Specialty Start Date End Date Michelle Erazo PAC [address] [place] [address] PCP - General Physician Fuel Conversion Technician 10/01/21 Shereen Urrutia, MICROSOFT BI DEVELOPER, SOAP GRINDER [address] [place] [address] Obstetrics & Gynecology 07/03/18 Delfino Smith MD [address] [place] [address] Consulting Physician Pulmonary Disease 07/22/23 Rosey Martin APRN, WAIST CUTTER [address] [place] [address] Nurse Practitioner Advanced Practice Nurse 06/25/23 Kathleen Godinez RN [place] OnCall Manager Spring 09/01/24 10/20/24 documented as of this encounter
--- OUTSIDE RECORDS SUMMARY | 2025-04-07 14:21 | XMS_ITS | Encounter Summary ---
Author Organization [facility] Address [address] [place] [address] Phone Care Team Providers Care Clin Application Specialist Name Role Phone Shereen Urrutia APRN, RETORT CONDENSER ATTENDANT Unavailable [phone] Michelle Erazo Primary Care Provider + Delfino Smith MD Unavailable Rosey Martin APRN, HAIR DESIGNER Unavailable Kathleen Godinez RN Unavailable Unavaila ble Reason for Visit * Reason Comments Medication Refill Encounter Details Date Type Department Care Team (Late st Contact Info) Description 07/19/2022 Refill [facility] Group - Neurology [facility] [address]2 [place] [address] Rosey Martin APRN, HAIR DESIGNER [address] [place] [address] Medication Refill Social History Tobacco Use Types [...] st Contact Info) Description 07/07/2025 3:30 PM FINISH REMOVER Office Visit [facility] Medical [facility] [address] [place] [address] Michelle Erazo, JUANCARLOS [address] [place] [address] documented as of this encounter Goals Goal Patient Goal Type Associated Problems Recent Progress Patient-Stated? Author I want a way to cope. Learn coping mechanisms. Behavioral Health On track( 022 2:51 PM CDT) Yes Selin Mo, CONVERSION WORKER Note: Goal Reviewed today with: patient Readiness to change: Ready to change Department associated with goal: [facility] Steps to achieve goal: [...] documented as of this encounter Care Teams Clin Application Specialist Relationship Specialty Start Date End Date Michelle Erazo PAC [address] [place] [address] PCP - General Physician Molding Machine Tender 10/01/21 Shereen Urrutia APRN, RETORT CONDENSER ATTENDANT [address] [place] [address] Obstetrics & Gynecology 07/03/18 Delfino Simth MD [address] [place] [address] Consulting Physician Pulmonary Disease 07/22/23 Rosey Martin APRN, HAIR DESIGNER [address] [place] [address] Nurse Practitioner Advanced Practice Nurse 06/25/23 Kathleen Godinez, RN [place] OnCall Station Engineer Main Line 09/01/24 10/20/24 documented as of this encounter
--- OUTSIDE RECORDS SUMMARY | 2025-04-07 14:21 | XMS_ITS | Encounter Summary ---
Author Organization [facility] Address [address] [place] [address] Phone Care Team Providers Care Hand Upper And Bottom Lacer Name Role Phone Shereen Urrutia APRN, FLY FINISHER Unavailable [phone] Michelle Erazo Primary Care Provider + Delfino Smith MD Unavailable Rosey Martin APRN, ADVANCED RESEARCH PROGRAMS DIRECTOR Unavailable Kathleen Godinez RN Unavailable Unavaila ble Reason for Visit * Reason Comments Medication Refill Encounter Details Date Type Department Care Team (Late st Contact Info) Description 12/15/2022 Refill [facility] Medical Group - Neurology [facility] #2 [place] [phone] Rosey Martin APRN, ADVANCED RESEARCH PROGRAMS DIRECTOR [address] [place] [address] Medication Refill Social History Tobacco Use Types [...] st Contact Info) Description 07/07/2025 3:30 PM AIRCRAFT ORDNANCE SYSTEMS MECHANIC Office Visit [facility] [place] [address] Michelle Erazo, JUANCARLOS [address] [place] [address] documented as of this encounter Goals Goal Patient Goal Type Associated Problems Recent Progress Patient-Stated? Author I want a way to cope. Learn coping mechanisms. Behavioral Health On track( 022 2:51 PM CDT) Yes Selin Mo, DOCTOR OF AUDIOLOGY Note: Goal Reviewed today with: patient Readiness to change: Ready to change Department associated with goal: [facility] Steps to achieve [...] documented as of this encounter Care Teams Hand Upper And Bottom Lacer Relationship Specialty Start Date End Date Michelle Erazo, [facility] [address] [place] [address] PCP - General Physician Cloth Grader 10/01/21 Shereen Urrutia, ADVANCED PRACTICE PROVIDER, FLY FINISHER [address] [place] [address] Obstetrics & Gynecology 07/03/18 Delfino Smith MD [address] [place] [address] Consulting Physician Pulmonary Disease 07/22/23 Rosey Martin, ADVANCED PRACTICE PROVIDER, ADVANCED RESEARCH PROGRAMS DIRECTOR [address] [place] [address] Nurse Practitioner Advanced Practice Nurse 06/25/23 Kathleen Godinez, ETTA [place] OnCall Acquisition Manager 09/01/24 10/20/24 documented as of this encounter
--- OUTSIDE RECORDS SUMMARY | 2025-04-07 14:21 | XMS_ITS | Encounter Summary ---
Author Organization [facility] Address [address] [place] [address] Phone Care Team Providers Care Facility Sales And Admin Name Role Phone Shereen Urrutia APRN, COLOR CHECKER ROVING OR YARN Unavailable [phone] Mcihelle Erazo Primary Care Provider + Delfino Smith MD Unavailable Rosey Martin APRN, RENAL DIALYSIS TECHNICIAN Unavailable + [phone] Kathleen Godinez RN Unavailable Unavaila ble Reason for Visit * Reason Comments Medication Refill Encounter Details Date Type Department Care Team (Late st Contact Info) Description 01/15/2024 Refill [facility] Medical Group - Family Medicine [facility] #[address] [place] [address] Michelle Erazo PAC [address] [place] [address] Medication Refill Social History Tobacco Use Types Packs/Day Years Used Date Smoking Tobacco: Every Day Cigarettes 1 40 Smokeless Tobacco: Never Alcohol Use Standard Drinks/Week Comments Yes 0 (1 standard drink = 0.6 oz pur e alcohol) social drinking [facility] Utilities Answer Date Recorded In the past 12 months has e electric, gas, oil, or water company threatened to shut off services in your home? Patient declined 10/21/2023 Social Connection and Isolation Panel Answer Date Recorded In a typical week, how many times do you talk on the phone with family, friends, or neighbors? More than three times a week 10/21/2023 How often do you get togethe r with friends or relatives? Patient declined 10/21/2023 How often do you attend chur or jain services? Patient declined 10/21/2023 Do you belong to any clubs o r organizations such as holiness groups, unions, fraternal or athletic groups, or school groups? Patient declined 10/21/2023 How often do you attend meet ings of the clubs or organizations you belong to? Patient declined 10/21/2023 Are you , , di vorced, , never , or living with a partner? 10/21/2023 AUDIT-C Answer Date Recorded Q1: How often do you have a drink containing alc ohol? Patient declined 10/21/2023 Q2: How many drinks containi ng alcohol do you have on a typical day when you are drinking? Patient declined 10/21/2023 Q3: How often do you have si x or more drinks on one occasion? Patient declined 10/21/2023 Overall Financial Resource Strain (CARDIA) Answe r Date Recorded How hard is it for you to pa y for the very basics like food, housing, medical care, and heating? Somewhat hard 10/21/2023 PHQ-2 Answer Date Recorded Total Score - Questions 1-9 6 09/26 [facility] - Occupational Stress Questionnaire Answer Date Recorded Do you feel stress - tense, restless, nervous, or anxious, or unable to sleep at night because your mind is troubled all the time - these days? Patient declined 10/21/2023 Exercise Vital Sign Answer Date Recorde d On average, how many days pe r week do you engage in moderate to strenuous exercise (like a brisk walk)? 7 days 10/21/2023 On average, how many minutes do you engage in exercise at this level? 0 min 10/21/2023 Hunger Vital Sign Answer Date Recorded Within the past 12 months, y ou worried that your food would run out before you got the money to buy more. Patient declined Within the past 12 months, t he food you bought just didn't last and you didn't have money to get more. Patient declined PRAPARE - Transportation Answer Date Re corded In the past 12 months, has l ack of transportation kept you from medical appointments or from getting medications? No 09/26 In the past 12 months, has l ack of transportation kept you from meetings, work, or from getting things needed for daily living? No 10/21/2023 Housing Stability Vital Sign Answer Jorge Alberto e Recorded In the last 12 months, was t here a time when you were not able to pay the mortgage or rent on time? No 10/21/2023 In the last 12 months, how many places have you lived? 1 10/21/2023 In the last 12 months, was t here a time when you did not have a steady place to sleep or slept in a intermediate (including now)? Yes 10/21/2023 Education Answer Date Recorded What is the [...] on file documented as of this encounter Miscellaneous Notes * Telephone Encounter - Ana Herbert RN - 01/16/2024 9:06 AM CDT Vitamin D new Rx 11/04/23 for 12 weeks - continue high dose? Per nursing clinical judgement, provider to review and approve the medication(s) order(s) if appropriate. Requested Prescriptions Pending Prescriptions Disp Refills ergocalciferol (VITAMIN D) 23771 UNIT Capsule [Pharmacy Med Name: VITAMIN D2 1.25MG(50,000 UNIT)] 12 Capsule 0 Sig: Take 1 Capsule by mouth once a week for 12 doses. Vitamin Supplements (Adult) Protocol Passed - 01/15/2024 12:49 PM Passed - Visit with relevant provider in past 12 months or upcoming 90 days Recent Visits Date Type Provider Dept 10/22/23 Office Visit Michelle Erazo PAC [facility] 07/22/23 Office Visit Jahaira Webb MD [facility] 06/18/23 Office Visit Jahaira Webb MD [facility] 04/03/23 Office Visit Michelle Erazo PAC [facility] 01/21/23 Office Visit Michelle Erazo PAC [facility] Showing recent visits within past 365 days and meeting all other requirements Future Appointments Date Type Provider Dept 02/24/24 Appointment Michelle Erazo PAC [facility] Showing future appointments within next 90 days and meeting all other requirements Passed - Vitamin D dose not greater than 1.25mg metoprolol Succinate (TOPROL-XL) 50 MG TABLET SR 24 HR [Pharmacy Med Name: METOPROLOL SUCC ER 50 MGTAB] 90 Tablet 1 Sig: TAKE 1 TABLET BY MOUTH EVERY DAY Beta-Blockers Protocol Passed - 01/15/2024 12:49 PM Passed - BP on record in the past year Clinician-entered: BP Readings from Last 3 Encounters: 11/24/23 145/75 11/10/23 110/78 10/22/23 110/80 Patient-entered: No data recorded Passed - Visit with relevant provider in past 12 months or upcoming 90 days Recent Visits Date Type Provider Dept 10/22/23 Office Visit Michelle Erazo PAC [facility] 07/22/23 Office Visit Jahaira Webb MD [facility] 06/18/23 Office Visit Jahaira Webb MD [facility] 04/03/23 Office Visit Michelle Erazo PAC [facility] 01/21/23 Office Visit Michelle Erazo PAC [facility] Showing recent visits within past 365 days and meeting all other requirements Future Appointments Date Type Provider Dept 02/24/24 Appointment Michelle Erazo PAC [facility] Showing future appointments within next 90 days and meeting all other requirements documented in this encounter Plan of Treatment Upcoming Encounters Date Type Department Care Team (Late st Contact Info) Description 07/07/2025 3:30 PM ELECTRICAL SUBCONTRACTOR Office Visit [facility] Medical Group - Family Medicine - [place] [address] [place] [address] Michelle Erazo, PAC [address] [place] [address] documented as of this encounter Goals Goal Patient Goal Type Associated Problems Recent Progress Patient-Stated? Author I want a way to cope. Learn coping mechanisms. Behavioral Health On track( 022 2:51 PM CDT) Yes Selin Mo, HEALTH CARE LAW SPECIALIST Note: Goal Reviewed today with: patient Readiness to change: Ready to change Department associated with goal: [facility] Steps to [...] filedocumented in this encounter Additional Health Concerns Assessment Noted Time PHQ-9 Depression Total Score: 6 10/22/19 24 1:16 PM ELECTRICAL SUBCONTRACTOR documented as of this encounter Care Teams Facility Sales And Admin Relationship Specialty Start Date End Date Michelle Erazo PAC [address] [place] [address] PCP - General Physician Group Account Director 10/01/21 Shereen Urrutia APRN, COLOR CHECKER ROVING OR YARN [address] [place] [address] Obstetrics & Gynecology 07/03/18 Delfino Smith MD [address] [place] [address] Consulting Physician Pulmonary Disease 07/22/23 Rosey Martin APRN, RENAL DIALYSIS TECHNICIAN [address] [place] [address] Nurse Practitioner Advanced Practice Nurse 06/25/23 Kathleen Godinez RN [place] OnCall Aircraft Navigator 09/01/24 10/20/24 documented as of this encounter
--- OUTSIDE RECORDS SUMMARY | 2025-04-07 14:21 | XMS_ITS | Encounter Summary ---
Author Organization [facility] Address [address] [place] [address] Phone Care Team Providers Care Warning Coordination Meteorologist Name Role Phone Shereen Urrutia APRN, LEATHER GOODS MAKER Unavailable [phone] Michelle Erazo Primary Care Provider + Delfino Smith MD Unavailable Rosey Martin APRN, CAN SOLDERER Unavailable Kathleen Godinez RN Unavailable Unavaila ble Reason for Visit * Reason Comments Medication Refill Encounter Details Date Type Department Care Team (Late st Contact Info) Description 03/08/2022 Refill [facility] - Neurology [facility] [address] [place] [id number] Rosey Martin APRN, CAN SOLDERER [address] [place] [address] Medication Refill Social History Tobacco Use Types [...] suspected to have Coronavirus/COVID-19? No / Unsure 03/06/2022 1:52 PM CDT documented as of this encounter Plan of Treatment Upcoming Encounters Date Type Department Care Team (Late st Contact Info) Description 07/07/2025 3:30 PM LOOM INSPECTOR Office Visit [facility] Medical [facility] [address] [place] [address] Michelle Erazo, JUANCARLOS [address] [place] [address] documented as of this encounter Goals Goal Patient Goal Type Associated Problems Recent Progress Patient-Stated? Author I want a way to cope. Learn coping mechanisms. Behavioral Health On track( 022 2:51 PM CDT) Yes Selin Mo, NEGATIVE ASSEMBLER Note: Goal Reviewed today with: patient Readiness to change: Ready to change Department associated with goal: [facility] Steps to achieve [...] documented as of this encounter Care Teams Warning Coordination Meteorologist Relationship Specialty Start Date End Date Michelle Erazo PAC [address] [place] [address] PCP - General Physician Collator Operator 10/01/21 Shereen Urrutia APRN, LEATHER GOODS MAKER [address] [place] [id number] Obstetrics & Gynecology 07/03/18 Delfino Smith MD [address] [place] [address] Consulting Physician Pulmonary Disease 07/22/23 Rosey Martin APRN, CAN SOLDERER [address] [place] [address] Nurse Practitioner Advanced Practice Nurse 06/25/23 Kathleen Godinez, ETTA [place] [employer] Drapery Sewer Hand 09/01/24 10/20/24 documented as of this encounter
--- OUTSIDE RECORDS SUMMARY | 2025-04-07 14:21 | XMS_ITS | Encounter Summary ---
Author Organization [facility] Address [address] [place] [address] Phone Care Team Providers Care Production Artist Name Role Phone Shereen Urrutia APRN, SUPERVISOR CAR INSTALLATIONS Unavailable [phone] Michelle Erazo Primary Care Provider + Delfino Smith MD Unavailable Rosey Martin APRN, HYDROCHLORIC MANUFACTURING SUPERVISOR Unavailable Kathleen Godinez RN Unavailable Unavaila ble Reason for Visit * Reason Comments Medication Refill Encounter Details Date Type Department Care Team (Late st Contact Info) Description 02/23/2023 Refill [facility] - Neurology [facility] [address] [place] [id number] Rosey Martin APRN, HYDROCHLORIC MANUFACTURING SUPERVISOR [address] [place] [address] Medication Refill Social History Tobacco Use Types [...] suspected to have Coronavirus/COVID-19? No / Unsure 02/17/2023 12:02 AM CDT documented as of this encounter Miscellaneous Notes * Telephone Encounter - Brittanie Grant RN - 02/26/2023 8:54 AM CDT Medication failed the protocol, provider to review and approve the medication order if appropriate. Requested Prescriptions Pending Prescriptions Disp Refills Melatonin 5 MG Tablet [Pharmacy Med Name: MELATONIN 5 MG TABLET] 90 Tablet 1 Sig: TAKE 1 TABLET BY MOUTH EVERY DAY Not Delegated - Off Protocol Failed - 02/23/2023 9:29 PM Failed - This refill cannot be delegated Passed - Visit with relevant provider in past 12 months or upcoming 90 days Recent Visits Date Type Provider Dept 01/21/23 Office Visit Michelle Erazo, PAC [facility] 11/07/22 Office Visit Rosey Martin APRN, HYDROCHLORIC MANUFACTURING SUPERVISOR [facility] Neurology [facility] 10/15/22 Office Visit Michelle Erazo, PAC [facility] 09/16/22 Office Visit Michelle Erazo, PAC [facility] 08/07/22 Office Visit Rosey Martin APRN, HYDROCHLORIC MANUFACTURING SUPERVISOR [facility] Neurology [facility] [address] 06/25/22 Office Visit Rosey Martin APRN, HYDROCHLORIC MANUFACTURING SUPERVISOR [facility] [address] 03/28/22 Office Visit Rosey Martin APRN, HYDROCHLORIC MANUFACTURING SUPERVISOR [facility] Neurology [facility] Showing recent visits within past 365 days and meeting all other requirements Future Appointments Date Type Provider Dept 05/12/23 Appointment Rosey Martin APRN, HYDROCHLORIC MANUFACTURING SUPERVISOR [facility] Neurology [facility] [address] Showing future appointments within next 90 days and meeting all other requirements documented in this encounter Plan of Treatment Upcoming Encounters Date Type Department Care Team (Late st Contact Info) Description 07/07/2025 3:30 PM VP CONSTRUCTION Office Visit [facility] - Family [facility] [address] [place] [address] Michelle Erazo PAC [address] [place] [address] documented as of this encounter Goals Goal Patient Goal Type Associated Problems Recent Progress Patient-Stated? Author I want a way to cope. Learn coping mechanisms. Behavioral Health On track( 022 2:51 PM CDT) Yes Selin Mo, DIRECTOR STAFFING Note: Goal Reviewed today with: patient Readiness to change: Ready to change Department associated with goal: [facility] Steps to achieve [...] as of this encounter Visit Diagnoses Diagnosis Restless legs syndrome Restless legs syndrome (RLS) documented in this encounter Additional Health Concerns Assessment Noted Time PHQ-9 Depression Total Score: 0 01/22/20 23 8:00 AM CDT documented as of this encounter Care Teams Production Artist Relationship Specialty Start Date End Date Michelle Erazo PAC [address] [place] [address] PCP - General Physician [employer] 10/01/21 Shereen Urrutia, COMMUNITY LIVING COACH, SUPERVISOR CAR INSTALLATIONS [address] [place] [id number] Obstetrics & Gynecology 07/03/18 Delfino Smith MD [address] [place] [address] Consulting Physician Pulmonary Disease 07/22/23 Rosey Martin, COMMUNITY LIVING COACH, HYDROCHLORIC MANUFACTURING SUPERVISOR [address] [place] [address] Nurse Practitioner Advanced Practice Nurse 06/25/23 Kathleen Godinez, RN [place] [employer] Director Of Strategic Marketing 09/01/24 10/20/24 documented as of this encounter
--- OUTSIDE RECORDS SUMMARY | 2025-04-07 14:21 | XMS_ITS | Clinical Summary ---
Author Organization [facility] Address [address], [facility] [address] [place] [address] Phone Care Team Providers Care Welder Oxyhydrogen Name Role Phone Shereen Urrutia APRN, MANAGER MARKETING COMMUNICATIONS Unavailable [phone] Michelle Erazo Primary Care Provider + Delfino Smith MD Unavailable Rosey Martin IT CORPORATE RECRUITER, RESPIRATORY DIRECTOR Unavailable + [phone] Allergies Active Allergy Reactions Criticality Noted Date Comments Bee Venom Unknown High 01/21/2023 Buspirone Other (see Comments) High 01/24/2018 Dehydration; became so dehydrated heart stopped Duloxetine Nausea Low 08/07/2022 Fluoxetine Hcl Other (see Comments) High 01/24/2018 Dehydration, became so dehydrated heart stopped Sulfa Antibiotics Anaphylaxis High 01/24/2018 Medications aspirin 81 MG Chewable Tablet Take 81 mg by mouth daily. Active omeprazole (PriLOSEC) 20 MG CAPSULE DELAYED RELEASE Take 20 mg by mouth daily. Active rosuvastatin (CRESTOR) 40 MG Tablet Take 1 Tablet by mouth daily. 90 Tablet 3 024 Active albuterol 108 (90 Base) MCG/ACT Aerosol Solution TAKE 2 PUFFS BY INHALATION EVERY 4 HOURS NEEDED FOR WHEEZING OR COUGH (SHORTNESS OF BREATH). 18 g 1 024 Active Fluticasone Furoate-Vilantero l (BREO ELLIPTA) 100-25 MCG/ACT AEROSOL POWDER, BREATH ACTIVATEDIndicati ons:Pulmonary emphysema, unspecified emphysema type (HCC) take 1 Puff by inhalation daily. 60 Each 5 024 Active SUMAtriptan (IMITREX) 100 MG TabletIndications :Episodic migraine Take 1 Tablet by mouth daily as needed for Migraine. Use as directed. May repeat dose in 2 hours if headache recurs. 10 Tablet 5 025 Active Melatonin 5 MG TabletIndications :Restless legs syndrome Take 1 Tablet by mouth daily. 90 Tablet 1 025 Active metoprolol Succinate (TOPROL-XL) 50 MG TABLET SR 24 HR TAKE 1 TABLET BY MOUTH EVERY DAY 90 Tablet 1 025 Active venlafaxine (EFFEXOR-XR) 75 MG CAPSULE SR 24 HRIndications:Anx iety,Chronic migraine w/o aura w/o status migrainosus, not intractable TAKE 1 CAPSULE BY MOUTH EVERY DAY 90 Capsule 3 025 Active topiramate (TOPAMAX) 100 MG TabletIndications :Episodic migraine TAKE 1 TABLET BY MOUTH TWICE A DAY 180 Tablet 1 025 Active Misc. Devices (Quad Cane) MiscIndications:D egeneration of intervertebral disc of lumbar region with discogenic back pain and lower extremity pain Use as directed 1 Each 025 Active famotidine (PEPCID) 20 MG Tablet TAKE 1 TABLET BY MOUTH TWICE A DAY 180 Tablet 1 025 Active methocarbamol (ROBAXIN) 500 MG TabletIndications :Restless legs syndrome TAKE 1 TABLET BY MOUTH 2 TIMES DAILY NEEDED FOR OTHER. 60 Tablet 2 025 Active hydrOXYzine (ATARAX) 25 MG TabletIndications :Anxiety Take 1 Tablet by mouth every 8 hours as needed for Anxiety. 90 Tablet 1 025 Active gabapentin (NEURONTIN) 600 MG Tablet TAKE 2 TABLETS BY MOUTH 3 TIMES A DAY 180 Tablet 2 025 Active naproxen (NAPROSYN) 500 MG Tablet TAKE 1 TABLET BY MOUTH 2 TIMES DAILY NEEDED FOR MODERATE OR MORE SEVERE PAIN. 180 Tablet 1 025 Active naproxen (NAPROSYN) 500 MG Tablet Take 1 Tablet by mouth 2 times daily as needed for Moderate or more severe pain. 180 Tablet 1 025 2024 Discontinued gabapentin (NEURONTIN) 600 MG Tablet Take 2 Tablets by mouth 3 times daily. 180 Tablet 3 025 2024 Discontinued methocarbamol (ROBAXIN) 500 MG TabletIndications :Restless legs syndrome TAKE 1 TABLET BY MOUTH 2 TIMES DAILY NEEDED FOR OTHER. 60 Tablet 2 025 2024 Discontinued methylPREDNISolon e (MEDROL DOSPACK) 4 MG Tablet Therapy Pack Use as per instructions on package. 21 Tablet 025 2024 Discontinued(T herapy completed) hydrOXYzine (ATARAX) 25 MG TabletIndications :Anxiety Take 1 Tablet by mouth every 8 hours as needed for Anxiety. 90 Tablet 1 025 2024 Discontinued(R eorder) Active Problems Problem Noted Date Diagnosed Date DONNA (obstructive sleep apnea) 07/22/2023 Tobacco use disorder 07/22/2023 Left upper lobe pulmonary nodule 07/22/2023 Migraine without aura and wi thout status migrainosus, not intractable 09/08/2019 Numbness and tingling of both lower extremities 09/08/2019 History of fusion of cervical spine 11/04/2018 Cannabis abuse 10/15/2018 Depression, major, recurrent, moderate 8 DDD (degenerative disc disease), lumbosacral Depression Asthma Iron deficiency OCD (obsessive compulsive disorder) Osteoporosis RLS (restless legs syndrome) GERD (gastroesophageal reflux disease) Migraines Rapid heart rate Resolved Problems Problem Noted Date Diagnosed Date Resolved Date Alcohol use disorder, severe , in early remission, dependence 08/11/2018 01/27/2019 Anorexia 01/28/2018 Encounters Date Type Department Care Team Description 03/[facility] [address] [place] [phone] Michelle Erazo, PAC Medication Refill 03/19/2025 Refill [facility] [address] [place] [id number] Rosey Martin APRN, RESPIRATORY DIRECTOR Medication Refill 03/17/2025 [facility] [address] [place] [address] Michelle Erazo, PAC Medication Refill 03/15/20[facility] [address] [place] [address] Rosey Martin, IT CORPORATE RECRUITER, RESPIRATORY DIRECTOR Medication Refill 01/28/2025 Documentation Only [facility] [address] [place] [address] Mala Narvaez RN 01/24/2025 3:29 PM CDT - 01/24/2025 11:59 PM CDT Hospital Encounter [facility] [address] [place] [address] Michelle Erazo, PAC Discharge Disposition: Discharged to home or Selfcare 01/24/2025 Travel 01/24/2025 Telephone [facility] Neu[facility] [address] [place] [address] Rosey Martin, IT CORPORATE RECRUITER, RESPIRATORY DIRECTOR 01/18/2025 1:30 PM CDT Ancillary Procedure [facility] [address] [place] [address] Michelle Erazo, PAC Encounter for screening for lung cancer Discharge Disposition: Discharged to home or Selfcare 01/18/2025 Travel 01/14/2025 [facility] [address] [place] [address] Michelle Erazo, PAC Medication Refill 01/12/2025 Results Follow-Up [facility] [address] [place] [address] Michelle Erazo, PAC CMP (COMPREHENSIVE METABOLIC PANEL), VITAMIN D, 25 HYDROXY TOTAL, THYROID STIMULATING HORMONE (TSH), Additional followed-up results: 8 01/06/2025 Documentation Only [facility] [address] [place] [address] Michelle Erazo PAC 01/06/2025 [facility]ill [facility] [address] [place] [address] Michelle Erazo PAC Medication Refill 01/05/2025 2:47 PM CDT - 01/05/2025 11:59 PM CDT [facility] [address] [place] [address] Michelle Erazo PAC Discharge Disposition: Discharged to home or Selfcare from Last 3 Months Immunizations Immunization Administration Dates Next Due Covid-19, Mrna, Lnp-s, Pf, 3 0 Mcg/0.3 Ml Dose, Leif-sucrose (Otelic bartlett top) 10/13/2021 Influenza Vaccine, Quadrivalent, PF 06/26,09/16/2022,09/18/2021,05/05,05/09/2019,06/03/2018 Influenza, Injectable, Quadrivalent 05/26/2020,1 ,05/09/2019 Influenza,Split Virus,Trivalent,Injectable,PF 07/01/2024 Pneumococcal Vaccine Adult - 23 Valent 8 Pneumococcal conjugate PCV20 , polysaccharide [id number] conjugate, adjuvant, PF 10/15/2022 TDAP Vaccine 04/19/2024, 3,12/12/2019,05/15 Family History Medical History Relation Name Comments Heart Disease Father Biological Alcohol Abuse Mother Biological Cancer Mother Biological breast Depression Mother Biological Relation Name Status Comments Brother (26) 1/2 brothers and si Alive Father Biological Mother Biological Social History Tobacco Use Types Packs/Day Years Used Date Smoking Tobacco: Every Day Cigarettes 1 40 Smokeless Tobacco: Never Tobacco Cessation:Ready to Q uit: Yes Alcohol Use Standard Drinks/Week Comments Yes 0 (1 standard drink = 0.6 oz pur e alcohol) social drinking [facility] Utilities Answer Date Recorded In the past 12 months has th e electric, gas, oil, or water company threatened to shut off services in your home? No 06/30/2024 Social Connection and Isolation Panel Answer Date Recorded In a typical week, how many times do you talk on the phone with family, friends, or neighbors? More than three times a week 06/30/2024 How often do you get togethe r with friends or relatives? More than three times a week 06/30/2024 How often do you attend chur ch or catholic services? Never 06/30/2024 Do you belong to any clubs o r organizations such as roman catholic groups, unions, fraternal or athletic groups, or school groups? No 06/30/2024 How often do you attend meet ings of the clubs or organizations you belong to? Never 06/30/2024 Are you , , di vorced, , never , or living with a partner? 06/30/2024 AUDIT-C Answer Date Recorded Q1: How often do you have a drink containing alc ohol? 2-4 times a month 06/30/2024 Q2: How many drinks containi ng alcohol do you have on a typical day when you are drinking? 1 or 2 06/30/2024 Q3: How often do you have si x or more drinks on one occasion? Never 06/30/2024 Overall Financial Resource Strain (CARDIA) Answe r Date Recorded How hard is it for you to pa y for the very basics like food, housing, medical care, and heating? Somewhat hard 06/30/2024 PHQ-2 Answer Date Recorded Total Score - Questions 1-9 0 12/23 [facility] - Occupational Stress Questionnaire Answer Date Recorded Do you feel stress - tense, restless, nervous, or anxious, or unable to sleep at night because your mind is troubled all the time - these days? To some extent 06/30/2024 Exercise Vital Sign Answer Date Recorde d On average, how many days pe r week do you engage in moderate to strenuous exercise (like a brisk walk)? 1 day 06/30/2024 On average, how many minutes do you engage in exercise at this level? 0 min 06/30/2024 Hunger Vital Sign Answer Date Recorded Within the past 12 months, y ou worried that your food would run out before you got the money to buy more. Sometimes true Within the past 12 months, t he food you bought just didn't last and you didn't have money to get more. Often true 01/2024 PRAPARE - Transportation Answer Date Re corded In the past 12 months, has l ack of transportation kept you from medical appointments or from getting medications? Yes 01/2024 In the past 12 months, has l ack of transportation kept you from meetings, work, or from getting things needed for daily living? Yes 06/30/2024 Housing Stability Vital Sign Answer Jorge Alberto [...] place to sleep or slept in a usp (including now)? Yes 10/21/2023 Housing Stability Vital Sign Answer Jorge Alberto e Recorded In the last 12 months, was t here a time when you were not able to pay the mortgage or rent on time? Yes 06/30/2024 In the past 12 months, how m any times have you moved where you were living? 1 06/30/2024 At any time in the past 12 m [facility], were you homeless or living in a usp (including now)? No 06/30/2024 Education Answer Date Recorded What is the highest level of school you have completed or the highest degree you have received? 12th grade 12/28/2021 Sexually Active Control Partners Comments Yes Male Comments No Sex and Gender Information Value Date Recorded Sex Assigned at Not on file Legal Sex Female 2:34 PM CDT Gender Identity Not on file Sexual Orientation Not on file Last Filed Vital Signs Vital Sign Reading Time Taken Comments Blood Pressure 102/60 01/04/2025 3:04 PM CDT Pulse 61 01/04/2025 3:04 PM CDT Temperature 36.2 C (97.2 F) 01/04/2025 3:04 PM CDT Respiratory Rate 17 05/13/2024 1:19 PM CDT Oxygen Saturation 96% 01/04/2025 3:04 PM CDT Inhaled Oxygen Concentration - - Weight 54 kg (119 lb) 01/04/2025 3:04 PM CDT Height 154.9 cm (5' 1) 01/04/2025 3:04 PM CDT Body Mass Index 22.48 01/04/2025 3:04 PM CDT Plan of Treatment Upcoming Encounters Date Type Department Care Team (Late st Contact Info) Description 07/07/2025 3:30 PM GAUGE INSPECTOR Office Visit [facility] [address] [place] [address] Michelle Erazo, PAC [address] [place] [address] Health Maintenance Due Date Last Done Comments Cologuard 2010 Immunochemical Fecal Occult Blood 2010 Zoster Immunization (1 of 2) 2015 SARS-COV-2 Immunization ( season) 2024 10/13/2021, 04/16/2021, 03/26/2021 Respiratory Syncytial Virus (RSV) Immunization (Adult) (1 - Risk 60-74 years 1-dose series) 2025 Influenza Immunization (#1) 2025 11/0 02/2024, 07/22/2023, 09/16/2022, Additional history exists Lung Cancer Screening 01/18/2026 01/18/2025 , 08/07/2023, 03/10/2023, Additional history exists Mammogram 01/24/2026 01/24/2025, 12/24, 12/06/2021, Additional history exists Colonoscopy 12/25/2030 12/25/2020 Colorectal Cancer Screening 12/25/2030 Td Immunization Every 10 Years (Adults With 1 Tdap) 04/19/2034 04/19/2024, 03/13/2023, 12/12/2019, Additional history exists Pneumococcal Immunization (50+ years) Completed 10/15/2022, 07/03/2018 Pneumococcal Immunization Combined Discontinued 10/15/2022, 07/03/2018 Hepatitis C Virus (HCV) Screening Completed 01/21/2023 Hepatitis B Immunization Aged Out No longer eligible based on patient's age to complete this topic Human Papillomavirus (HPV) Immunization Aged Out No longer eligible based on patient's age to complete this topic Meningococcal Immunization (ACWY) Aged Out No longer eligible based on patient's age to complete this topic Rotavirus Immunization Aged Out No lo nger eligible based on patient's age to complete this topic Goals Goal Patient Goal Type Associated Problems Recent Progress Patient-Stated? Author I want a way to cope. Learn coping mechanisms. Behavioral Health On track( 022 2:51 PM CDT) Yes Selin Mo, SEASONAL [employer] BUNDLER Note: Goal Reviewed today with: patient Readiness to change: Ready to change Department associated with goal: [facility] Steps to achieve goal: [...] individual and/or group therapy at least 1x/month Medical Devices Implanted Type Area Canvas Worker Apprentice Device Identifier Shelf Expiration Date Model / Serial / Lot [employer] Neurostimulator-01/23 Implanted:Qty: 1 on 02/05/2019 by Jason Cruz MD IPG Back [employer] [id number] / / Description:[employer] Neurost imulator 3660 IPG is MRI conditional, but leads are NOT. DO NOT PERFORM MRI Lead-02/05/2019 Implanted:Qty: 2 on 02/05/2019 by Jason Cruz MD LEAD Spine Cervical [employer] [id number] / / Description:Neurostimulator leads ending at C2 & C3. IPG is MRI conditional, but leads ARE NOT. DO NOT MRI!!! Procedures Procedure Name Priority Date/Time Associated Diagnosis Comments DRAKE SCREENING BILATERAL DIGITAL W CAD W MARTIN Routine 01/24/2025 3:55 PM CDT Screening mammogram for breast cancer CT CHEST SCREENING WO Routine 01/18/2025 1:24 PM CDT Encounter for screening for lung cancer XR HIP 2-3 VIEWS W/PELVIS UNILATERAL RIGHT Routine 01/05/2025 3:14 PM CDT Right hip pain CBC WITH AUTO DIFFERENTIAL Routine 01/05/2025 2:39 PM CDT Hyperlipidemia, unspecified hyperlipidemia type HEMOGLOBIN A1C W/ ESTIMATED GLUCOSE Routine 01/05/2025 2:39 PM CDT Elevated glucose VITAMIN B12 Routine 01/05/2025 2:39 PM CDT B12 deficiency LIPID PANEL Routine 01/05/2025 2:39 PM CDT Hyperlipidemia, unspecified hyperlipidemia type MAGNESIUM (MG) Routine 01/05/2025 2:39 PM CDT Hyperlipidemia, unspecified hyperlipidemia type THYROXINE (T4) FREE Routine 01/05/2025 2 :39 PM CDT Hyperlipidemia, unspecified hyperlipidemia type THYROID STIMULATING HORMONE (TSH) Routine 01/05/2025 2:39 PM CDT Hyperlipidemia, unspecified hyperlipidemia type VITAMIN D, 25 HYDROXY TOTAL Routine 01/05/2025 2:39 PM CDT Low bone mass COMPLETE BLOOD COUNT (CBC) WITH DIFF Routine 01/05/2025 2:39 PM CDT Hyperlipidemia, unspecified hyperlipidemia type CMP (COMPREHENSIVE METABOLIC PANEL) Routine 01/05/2025 2:39 PM CDT Hyperlipidemia, unspecified hyperlipidemia type HEPATITIS C ANTIBODY Routine 01/21/2023 9:01 AM CDT Need for hepatitis C screening test from Last 3 Months or Most Recently Relevant to Health Maintenance Results * DRAKE SCREENING BILATERAL DIGITAL W CAD W MARTIN (01/24/2025 3:55 PM CDT) Anatomical Region Laterality Modality breast Bilateral Mammography 01/24/2025 3:35 PM CDT Narrative 01/25/2025 9:57 AM CDT - DRAKE SCREENING BILATERAL DIGITAL W CAD W MARTIN BILATERAL DIGITAL SCREENING MAMMOGRAM 3D/2D WITH CAD WITH MEDIOLATERAL OBLIQUE CRANIOCAUDAL: 01/24/2025 The study was acquired using digital technology and interpreted from soft copy. Current study was also evaluated with ICAD version 7.2. 2D digital mammographic views, as well as 3D digital tomosynthesis were performed in the CC and MLO projections. CLINICAL: Routine screening. Patient has no complaints. No personal history of cancer. Mother with premenopausal breast cancer. Maternal aunt had breast cancer. COMPARISONS: Comparison is made to exams dated: 01/21/2024, 12/06/2021, 01/26/2019, and 06/05/2018 [facility]. BREAST TISSUE:There are scattered areas of fibroglandular density. FINDINGS: No significant masses, calcifications, or other findings are seen in either breast. There has been no significant interval change. IMPRESSION: NEGATIVE There is no mammographic evidence of malignancy. A 1 year screening mammogram is recommended. A letter will be sent to the patient with these results. The patient will be entered into a reminder system with a target due date of 1 year for her next screening exam. Electronically signed by: Tiff Adam M.D. ab/tyrell:01/24/2025 16:25:29 Embossing Press Operator Apprentice(s): RT Sanam(R)(M), [facility] letter sent: Normal Exam Reading location: [facility] Mammogram BI-RADS: Category 1: Negative Procedure Note Tiff Adam MD - 01/25/2025 - DRAKE SCREENING BILATERAL DIGITAL W CAD W MARTIN BILATERAL DIGITAL SCREENING MAMMOGRAM 3D/2D WITH CAD WITH MEDIOLATERAL OBLIQUE CRANIOCAUDAL: 01/24/2025 The study was acquired using digital technology and interpreted from soft copy. Current study was also evaluated with ICAD version 7.2. 2D digital mammographic views, as well as 3D digital tomosynthesis were performed in the CC and MLO projections. CLINICAL: Routine screening. Patient has no complaints. No personal history of cancer. Mother with premenopausal breast cancer. Maternal aunt had breast cancer. COMPARISONS: Comparison is made to exams dated: 01/21/2024, 12/06/2021, 01/26/2019, and 06/05/2018 [facility]. BREAST TISSUE:There are scattered areas of fibroglandular density. FINDINGS: No significant masses, calcifications, or other findings are seen in either breast. There has been no significant interval change. IMPRESSION: NEGATIVE There is no mammographic evidence of malignancy. A 1 year screening mammogram is recommended. A letter will be sent to the patient with these results. The patient will be entered into a reminder system with a target due date of 1 year for her next screening exam. Electronically signed by: Tiff vasquez/tyrell:01/24/2025 16:25:29 Embossing Press Operator Apprentice(s): RT Sanam(R)(M), [facility] letter sent: Normal Exam Reading location: [facility] Mammogram BI-RADS: Category 1: Negative us Laurel Fritcher PAC IMG MAMMO ORDERABLES Fin al Result * CT CHEST SCREENING WO (01/18/2025 1:24 PM CDT) Anatomical Region Laterality Modality Chest N/A Computed Tomogra phy 01/28/2025 7:46 AM CDT Impressions 01/28/2025 7:49 AM CDT IMPRESSION: Redemonstration of a couple of scattered small pulmonary nodules measuring up to 0.3 cm, grossly unchanged in comparison to the prior study. No definite evidence of a new suspicious pulmonary nodule. Mild emphysematous changes of lungs with scattered subsegmental atelectasis and scarring. Scattered mild bronchial wall thickening, which is likely related to mild chronic bronchitis/bronchiolitis. Scattered subtle ground-glass centrilobular airspace opacities in the bilateral lungs, which is likely due to smoking-related respiratory bronchiolitis. Lung-RADS category 2: Benign appearance or behavior. Recommendation: Low dose Screening CT of chest in 12 months. Narrative 01/28/2025 7:49 AM CDT EXAM DESCRIPTION: CT CHEST SCREENING WO REASON FOR STUDY: Screening CT of the chest in a current smoker with a 45 pack year smoking history. Additional history: History of pulmonary nodules.. TECHNIQUE: Low dose CT scan of the chest was performed without intravenous contrast using helical scanning technique. The exam extends from the lung apices through the lung bases. Automatic exposure control was used as a dose optimization technique. NOTE: This study was performed for the specific purposes of lung cancer screening and is not an alternative to diagnostic chest CT. RADIATION DOSE: CT dose index volume (CTDIvol) = 1.60 mGy COMPARISON: 08/07/2023 FINDINGS: SMOKING RELATED LUNG DISEASE: There are mild emphysematous changes of lungs with scattered subsegmental atelectasis and scarring. There are scattered subtle ground-glass centrilobular airspace opacities in the bilateral lungs, which is likely due to smoking-related respiratory bronchiolitis. There is mild biapical pleural thickening and scarring, which is greater on the right than the left. There is no definite evidence of a pneumothorax. There are scattered mild bronchial wall thickening, which is likely related to mild chronic bronchitis/bronchiolitis. There is no definite evidence of focal consolidation or pleural effusion. LUNG NODULES: There is a stable 0.3 cm pulmonary nodule in the anterior right upper lobe near the right minor fissure (axial image 124). There is a stable 0.3 cm pulmonary nodule in the lateral central left lower lobe (axial image 176). CORONARY ARTERY CALCIFICATION: Present. OTHER: The heart size is stable. There is no definite evidence of pericardial effusion. There are atherosclerotic changes of the thoracic aorta and coronary vessels. There is no definite unenhanced CT evidence of mediastinal, hilar, or axillary lymphadenopathy. There are scattered subcentimeter mediastinal lymph nodes noted with largest measuring 0.6 cm in the subcarinal region (axial image 103). The bilateral adrenal glands are grossly stable and unremarkable. There is mild osteopenia. There is mild dextroscoliotic curvature of the spine with degenerative changes. THIS IS AN ELECTRONICALLY VERIFIED FINAL REPORT 01/28/2025 7:46 AM - Electronically signed by Tarah Siu D.O. PS: PS Report ID: [id number] Reading Location: [place] [address] Procedure Note Tarah Siu DO - 01/28/2025 EXAM DESCRIPTION: CT CHEST SCREENING WO REASON FOR STUDY: Screening CT of the chest in a current smoker with a 45 pack year smoking history. Additional history: History of pulmonary nodules.. TECHNIQUE: Low dose CT scan of the chest was performed without intravenous contrast using helical scanning technique. The exam extends from the lung apices through the lung bases. Automatic exposure control was used as a dose optimization technique. NOTE: This study was performed for the specific purposes of lung cancer screening and is not an alternative to diagnostic chest CT. RADIATION DOSE: CT dose index volume (CTDIvol) = 1.60 mGy COMPARISON: 08/07/2023 FINDINGS: SMOKING RELATED LUNG DISEASE: There are mild emphysematous changes of lungs with scattered subsegmental atelectasis and scarring. There are scattered subtle ground-glass centrilobular airspace opacities in the bilateral lungs, which is likely due to smoking-related respiratory bronchiolitis. There is mild biapical pleural thickening and scarring, which is greater on the right than the left. There is no definite evidence of a pneumothorax. There are scattered mild bronchial wall thickening, which is likely related to mild chronic bronchitis/bronchiolitis. There is no definite evidence of focal consolidation or pleural effusion. LUNG NODULES: There is a stable 0.3 cm pulmonary nodule in the anterior right upper lobe near the right minor fissure (axial image 124). There is a stable 0.3 cm pulmonary nodule in the lateral central left lower lobe (axial image 176). CORONARY ARTERY CALCIFICATION: Present. OTHER: The heart size is stable. There is no definite evidence of pericardial effusion. There are atherosclerotic changes of the thoracic aorta and coronary vessels. There is no definite unenhanced CT evidence of mediastinal, hilar, or axillary lymphadenopathy. There are scattered subcentimeter mediastinal lymph nodes noted with largest measuring 0.6 cm in the subcarinal region (axial image 103). The bilateral adrenal glands are grossly stable and unremarkable. There is mild osteopenia. There is mild dextroscoliotic curvature of the spine with degenerative changes. THIS IS AN ELECTRONICALLY VERIFIED FINAL REPORT 01/28/2025 7:46 AM - Electronically signed by Tarah Siu D.O. PS: PS Report ID: [id number] Reading Location: [id number] IMPRESSION: Redemonstration of a couple of scattered small pulmonary nodules measuring up to 0.3 cm, grossly unchanged in comparison to the prior study. No definite evidence of a new suspicious pulmonary nodule. Mild emphysematous changes of lungs with scattered subsegmental atelectasis and scarring. Scattered mild bronchial wall thickening, which is likely related to mild chronic bronchitis/bronchiolitis. Scattered subtle ground-glass centrilobular airspace opacities in the bilateral lungs, which is likely due to smoking-related respiratory bronchiolitis. Lung-RADS category 2: Benign appearance or behavior. Recommendation: Low dose Screening CT of chest in 12 months. Michelle Erazo PAC IMG CT ORDERABLES Final Result * XR HIP 2-3 VIEWS W/PELVIS UNILATERAL RIGHT (01/05/2025 3:14 PM CDT) Anatomical Region Laterality Modality LOWER EXTREMITY, hip, Pelvis Right Dig ital Radiography 01/07/2025 3:31 PM CDT Impressions 01/07/2025 3:33 PM CDT IMPRESSION: Mild degenerative changes without acute findings right hip. Narrative 01/07/2025 3:33 PM CDT EXAM DESCRIPTION: XR HIP 2-3 VIEWS W/PELVIS UNILATERAL RIGHT REASON FOR STUDY: pain x 3 weeks. no injury TECHNIQUE: Two views right hip and frontal view pelvis COMPARISON: 11/12/2023 FINDINGS: No acute fracture or dislocation. No lytic or destructive process. Mild degenerative change both acetabuli generally similar to previous. Orthopedic hardware lumbosacral junction unchanged. Mild degenerative changes SI joints and pubic symphysis. Soft tissues unremarkable. THIS IS AN ELECTRONICALLY VERIFIED FINAL REPORT 01/07/2025 3:31 PM - Electronically signed by Antonio Andrews M.D. RB: ENRIKE Report ID: [id number] Reading Location: [id number] Procedure Note Antonio Andrews MD - 01/07/2025 EXAM DESCRIPTION: XR HIP 2-3 VIEWS W/PELVIS UNILATERAL RIGHT REASON FOR STUDY: pain x 3 weeks. no injury TECHNIQUE: Two views right hip and frontal view pelvis COMPARISON: 11/12/2023 FINDINGS: No acute fracture or dislocation. No lytic or destructive process. Mild degenerative change both acetabuli generally similar to previous. Orthopedic hardware lumbosacral junction unchanged. Mild degenerative changes SI joints and pubic symphysis. Soft tissues unremarkable. THIS IS AN ELECTRONICALLY VERIFIED FINAL REPORT 01/07/2025 3:31 PM - Electronically signed by Antonio Andrews M.D. RB: RB Report ID: [id number] Reading Location: [id number] IMPRESSION: Mild degenerative changes without acute findings right hip. Michelle Patgmflavio PAC IMG DIAGNOSTIC ORDERABLE S Final Result * VITAMIN D, 25 HYDROXY TOTAL (01/05/2025 2:39 PM CDT) VITAMIN D, 25 HYDROX 25.3 ng/mL 01/05/2025 4:05 PM CDT [facility] Blood Venipuncture / Unknown 01/05/2025 2:39 PM CDT 01/05/2025 3:[address] [facility] - 01/05/2025 4:05 PM CDT Published reference ranges for Vitamin D vary depending on time and place and method of testing, and on patient's age, sex, ethnicity and levels of other measured analytes such as parathormone, calcium and phosphorus. The result should be evaluated in conjunction with clinical findings and suspicions. [facility] Clinical Practice Guidelines: Status Vitamin D levels (ng/mL) Deficient <=20 At risk of inadequacy 21-29 Sufficient 30-100 Centers of Disease Control and Prevention Guidelines: Status Vitamin D levels (ng/mL) Deficient <13 At risk of inadequacy 13-19 Sufficient 20-50 Possibly harmful >50 References: [facility], 2010 Dietary reference intakes for calcium and vitamin D. [place]: The National Academies Press. Keon Edmond, Taty Weinstein, Blane RAMSAY, et al., Evaluation, treatment, and prevention of Vitamin D deficiency: an Endocrinology Clinical Practice Guideline. JCEM 2011 96: 7 7967-0127. Barbara A, Juan Carlos C, Wilfrido D, et al., Vitamin D Status: [place], , [facility] data brief, no. 59, MD Sebastian: [facility] Statistics. 2011. Michelle Erazo PAC CHEMISTRY ORDERABLES Fin al Result Performing Organization Address City/[facility]/ZIP Co de Phone Number [facility] [address] [place] [address] * HEMOGLOBIN A1C W/ ESTIMATED GLUCOSE (01/05/2025 2:39 PM CDT) HGB-A1C 5.4 4.0 - 6.0 % 01/05/2025 3:[address] [facility] Est Average Glucose 108.3 mg/dL 01/05/2025 3:34 PM CDT [facility] Blood Venipuncture / Unknown 01/05/2025 2:39 PM CDT 01/05/2025 3:07 PM CDT Narrative [facility] - 01/05/2025 3:34 PM CDT HEMOGLOBIN A1C: DIABETIC PATIENTS: WELL-CONTROLLED: 6.2 - 7.0 INTERMEDIATE WELL-CONTROLLED: 7.0 - 9.0 POORLY-CONTROLLED: >9.0 Specimens containing greater than 5% of Hemoglobin F may result in lower than expected % HbA1C results. Michelle Erazo PAC CHEMISTRY ORDERABLES Fin al Result Performing Organization Address City/[facility] Co de Phone Number [facility] [address] [place] [address] * (ABNORMAL) CBC WITH AUTO DIFFERENTIAL (01/05/2025 2:39 PM CDT) WBC 7.49 4.00 - 12.00 10(3)/mcL 01/05/2025 3:[address] [facility] RBC 3.92 3.80 - 5.30 10(6)/mcL 01/05/2025 3:[address] [facility] HEMOGLOBIN (HGB) 12.9 12.0 - 15.8 g/dL 01/05/2025 3:[address] [facility] HEMATOCRIT (HCT) 38.7 36.0 - 47.0 % 01/05/2025 3:[address] [facility] MCV 98.7(H) 82.0 - 96.0 fL 01/05/2025 3:[address] [facility] MCH 32.9 26.0 - 34.0 pg 01/05/2025 3:[address] [facility] MCHC 33.3 31.0 - 36.0 g/dL 01/05/2025 3:11 PM CDT [facility] PLATELET COUNT 247 140 - 440 10(3)/mcL 01/05/2025 3:11 PM CDT [facility] RDW 14.1 11.8 - 15.5 % 01/05/2025 3:11 PM CDT [facility] MPV 10.1 9.7 - 12.4 fL 01/05/2025 3:11 PM CDT [facility] NEUTROPHILS 45.9(L) 47.0 - 73.0 % 01/05/2025 3:[address] [facility] LYMPHOCYTES 43.7(H) 18.0 - 42.0 % 01/05/2025 3:[address] [facility] MONOCYTES 4.7 4.0 - 12.0 % 01/05/2025 3:11 PM CDT [facility] EOSINOPHILS 4.9 0.0 - 5.0 % 01/05/2025 3:[address] [facility] BASOPHILS 0.8 0.0 - 1.0 % 01/05/2025 3:11 PM CDT [facility] ABSOLUTE NEUTROPHILS 3.44 1.60 - 7.70 10(3)/[facility] 01/05/2025 3:[address] [facility] ABSOLUTE LYMPHOCYTES 3.27(H) 1.30 - 3.20 10(3)/[facility] 01/05/2025 3:[address] [facility] ABSOLUTE MONOCYTES 0.35 0.20 - 1.00 10(3)/[facility] 01/05/2025 3:[address] [facility] ABSOLUTE EOSINOPHIL 0.37 0.00 - 0.40 10(3)/[facility] 01/05/2025 3:[address] [facility] ABSOLUTE BASOPHILS 0.06 0.00 - 0.10 10(3)/[facility] 01/05/2025 3:[address] [facility] NRBC PER 100 WBC 0 01/06/20 3:[address] [facility] Blood Venipuncture / Unknown 01/05/2025 2:39 PM CDT 01/05/2025 3:08 PM CDT us Michelle Erazo PAC HEMATOLOGY ORDERABLES Fi nal Result [facility] [address] [place] [address] * VITAMIN B12 (01/05/2025 2:39 PM CDT) VITAMIN B12 585 213 - 816 pg/mL 01/05/2025 4:[address] [facility] Blood Venipuncture / Unknown 01/05/2025 2:39 PM CDT 01/05/2025 3:07 PM CDT us Michelle Erazo PAC CHEMISTRY ORDERABLES Fin al Result [facility] [address] [place] [address] * THYROXINE (T4) FREE (01/05/2025 2:39 PM CDT) T4 FREE 0.7 0.7 - 1.9 ng/dL 01/05/2025 3:[address] [facility] Blood Venipuncture / Unknown 01/05/2025 2:39 PM CDT 01/05/2025 3:08 PM CDT Michelle Erazo PAC CHEMISTRY ORDERABLES Fin al Result Performing Organization Address City/[facility]/ZIP Co de Phone Number [facility] [address] [place] [address] * THYROID STIMULATING HORMONE (TSH) (01/05/2025 2:39 PM CDT) TSH 1.848 0.300 - 5.000 mIU/L 01/05/2025 3:[address] [facility] Blood Venipuncture / Unknown 01/05/2025 2:39 PM CDT 01/05/2025 3:08 PM CDT Michelle Erazo PAC CHEMISTRY ORDERABLES Fin al Result Performing Organization Address City/[facility]/ZIP Co de Phone Number [facility] [address] [place] [address] * MAGNESIUM (MG) (01/05/2025 2:39 PM CDT) MAGNESIUM 2.1 1.6 - 2.6 mg/dL 01/05/2025 3:[address] [facility] Blood Venipuncture / Unknown 01/05/2025 2:39 PM CDT 01/05/2025 3:08 PM CDT Michelle Erazo PAC CHEMISTRY ORDERABLES Fin al Result [facility] [address] [place] [address] * LIPID PANEL (01/05/2025 2:39 PM CDT) CHOLESTEROL 131 <200 mg/dL 01/05/2025 3:[address] [facility] TRIGLYCERIDES 82 <150 mg/dL 01/05/2025 3:[address] [facility] HDL CHOLESTEROL 45 >40 mg/dL 3:[address] [facility] LDL 70 <130 mg/dL 01/05/2025 3:[address] [facility] VLDL 16 10 - 50 mg/dL 01/05/2025 3:39 PM CDT [facility] CHOL/HDL RATIO 2.9 0.0 - 4.4 01/05/2025 3:[address] [facility] NON-HDL CHOLESTEROL 86 <130 mg/dL 01/05/2025 3:39 PM CDT [facility] IS THE PATIENT REQUIRED TO BE FASTING? No 01/05/2025 3:39 PM CDT [facility] Blood Venipuncture / Unknown 01/05/2025 2:39 PM CDT 01/05/2025 3:08 PM CDT us Michelle Erazo PAC CHEMISTRY ORDERABLES Fin al Result [facility] [address] [place] [address] * (ABNORMAL) CMP (COMPREHENSIVE METABOLIC PANEL) (01/05/2025 2:39 PM CDT) SODIUM 138 136 - 145 mmol/L 01/05/2025 3:[address] [facility] POTASSIUM 4.1 3.5 - 5.1 mmol/L 01/05/2025 3:39 PM CDT [facility] CHLORIDE 111(H) 98 - 107 mmol/L 01/05/2025 3:39 PM CDT [facility] CO2, VENOUS 21(L) 22 - 30 mmol/L 01/05/2025 3:39 PM CDT [facility] ANION GAP 10.1 <18.0 mmol/L 01/05/2025 3:39 PM CDT [facility] GLUCOSE 94 70 - 99 mg/dL 01/05/2025 3:39 PM CDT [facility] BUN 15 10 - 20 mg/dL 01/05/2025 3:39 PM CDT [facility] CREATININE, BLOOD 0.96 0.60 - 1.00 mg/dL 01/05/2025 3:39 PM CDT [facility] BUN/CREATININE RATIO 16 12 - 20 ratio 01/05/2025 3:39 PM CDT [facility] TOTAL PROTEIN 6.9 6.0 - 8.0 g/dL 01/05/2025 3:39 PM CDT [facility] ALBUMIN 3.9 3.5 - 5.0 g/dL 01/05/2025 3:39 PM T [facility] A/G RATIO 1.3 1.0 - 2.2 01/05/2025 3:39 PM CDT [facility] CALCIUM 8.9 8.7 - 10.5 mg/dL 01/05/2025 3:39 PM CDT [facility] T BILI 0.3 0.2 - 1.2 mg/dL 01/05/2025 3:39 PM CDT [facility] SGOT (AST) 26 <43 U/L 01/05/2025 3:39 PM T [facility] SGPT (ALT) 19 <56 U/L 01/05/2025 3:39 PM CDT [facility] ALKALINE PHOSPHATASE 72 40 - 150 U/L 01/05/2025 3:39 PM CDT [facility] IS THE PATIENT REQUIRED TO BE FASTING? No 01/05/2025 3:[address] [facility] GFR, ESTIMATED >60 >=60 01/05/2025 3:[address] [facility] Comment: Creatinine Clearance is the preferred criteria for selecting drug dose adjustments in renally impaired patients. The GFR is provided as additional pertinent clinical information. GFR is reported in mL/min/1.73 sq m. Calculation based on the Chronic Kidney Disease Epidemiology Collaboration (CKD- EPI) equation refit without adjustment for race. GFR, EST. >60 >=60 01/05/ 025 3:[address] [facility] GFR, EST. NONAFRICAN 59(L) >=60 01/05/2025 3:[address] [facility] Blood Venipuncture / Unknown 01/05/2025 2:39 PM CDT 01/05/2025 3:08 PM CDT Michelle Erazo PAC CHEMISTRY ORDERABLES Fin al Result [facility] [address] [place] [address] * HEPATITIS C ANTIBODY (01/21/2023 9:01 AM CDT) hepatitis C antibody 0.08 <1 S/CO [facility] ARCH [id number] A 01/22/2023 3:15 AM CDT [facility] Comment: Signal/Cutoff ratio < 0.79 is Nondetected Signal/Cutoff ratio 0.80-0.99 is Grayzone Signal/Cutoff ratio > 0.99 is Detected Supplemental assays are recommended if signal/cutoff ratio is >/=1.00. Signal/cutoff ratio result >/= 5.00 is 97% predictive of positivity for recombinant immunoblot assay (RIBA) and will be reported to the [place] Department of Public Health as required. Blood Venipuncture / Unknown 01/21/2023 9:01 AM CDT 01/21/2023 9:01 AM CDT us Michelle Conley Castro PAC CHEMISTRY ORDERABLES Fin al Result [facility] [address] [place] [address], [place] from Last 3 Months or Most Recently Relevant to Health Maintenance Insurance MEDICAID [place] MEDICARE Care Teams Welder Oxyhydrogen Relationship Specialty Start Date End Date Michelle Erazo PAC [address] [place] [address] PCP - General Physician Roll Tender 10/01/21 Shereen Urrutia, IT CORPORATE RECRUITER, MANAGER MARKETING COMMUNICATIONS [address] [place] [phone] Obstetrics & Gynecology 07/03/18 Delfino Smith MD [address] [place] [address] Consulting Physician Pulmonary Disease 07/22/23 Rosey Martin APRN, RESPIRATORY DIRECTOR [address] [place] [address] Nurse Practitioner Advanced Practice Nurse 06/25/23
--- OUTSIDE RECORDS SUMMARY | 2025-04-07 14:21 | XMS_ITS | Encounter Summary ---
Author Organization [facility] Address [address] [place] [address] Phone Care Team Providers Care Machine Filler Shredder Name Role Phone Shereen Urrutia APRN, MORTGAGE ASSISTANT Unavailable [phone] Michelle Erazo Primary Care Provider + Delfino Smith MD Unavailable Rosey Martin APRN, SMALL ARMS REPAIRER Unavailable Kathleen Godinez RN Unavailable Unavaila ble Reason for Visit * Reason Comments Medication Refill Encounter Details Date Type Department Care Team (Late st Contact Info) Description 07/19/2022 Refill [facility] - Neurology [facility] [address] [place] [id number] Rosey Martin APRN, SMALL ARMS REPAIRER [address] [place] [address] Medication Refill Social History Tobacco Use Types [...] st Contact Info) Description 07/07/2025 3:30 PM SHIP PAINTER HELPER Office Visit [facility] [address] [place] [address] Michelle Erazo, JUANCARLOS [address] [place] [address] documented as of this encounter Goals Goal Patient Goal Type Associated Problems Recent Progress Patient-Stated? Author I want a way to cope. Learn coping mechanisms. Behavioral Health On track( 022 2:51 PM CDT) Yes Selin Mo, DIGITAL TECHNICIAN Note: Goal Reviewed today with: patient Readiness to change: Ready to change Department associated with goal: [facility] Steps to [...] documented as of this encounter Care Teams Machine Filler Shredder Relationship Specialty Start Date End Date Michelle Erazo PAC [address] [place] [address] PCP - General Physician Business Administration Teacher 10/01/21 Shereen Urrutia APRN, MORTGAGE ASSISTANT [address] [place] [address] Obstetrics & Gynecology 07/03/18 Delfino Smith MD [address] [place] [phone] Consulting Physician Pulmonary Disease 07/22/23 Rosey Martin APRN, SMALL ARMS REPAIRER [address] [place] [address] Nurse Practitioner Advanced Practice Nurse 06/25/23 Kathleen Godinez, RN [place] OnCall Charge Account Identification Clerk 09/01/24 10/20/24 documented as of this encounter
--- OUTSIDE RECORDS SUMMARY | 2025-04-07 14:21 | XMS_ITS | Encounter Summary ---
Author Organization [facility] Address [address] [place] [address] Phone Care Team Providers Care Slabber Name Role Phone Shereen Urrutia APRN, CHEMICAL RESEARCH ENGINEER Unavailable [phone] Michelle Erazo Primary Care Provider + Delfino Smith MD Unavailable Rosey Martin APRN, MUSIC PUBLICIST Unavailable + [phone] Kathleen Godinez RN Unavailable Unavaila ble Reason for Visit * Reason Comments Medication Refill Encounter Details Date Type Department Care Team (Late st Contact Info) Description 12/05/2023 Refill [facility] - Family Medicine [facility] [address] [place] [address] Michelle Erazo PAC [address] [place] [address] Medication Refill Social History Tobacco Use Types Packs/Day Years Used Date Smoking Tobacco: Every Day Cigarettes 1 40 Smokeless Tobacco: Never Alcohol Use Standard Drinks/Week Comments Yes 0 (1 standard drink = 0.6 oz pur e alcohol) social drinking [facility] Utilities Answer Date Recorded In the [...] How often do you attend chur or sabianist services? Patient declined 10/21/2023 Do you belong to any clubs o r organizations such as buddhism groups, unions, fraternal or athletic groups, or [...] Total Score - Questions 1-9 6 09/26 [facility] - Occupational [...] place to sleep or slept in a mcfp (including now)? Yes 10/21/2023 Education Answer Date [...] Telephone Encounter - Ana Herbert RN - 12/05/2023 9:00 AM CDT Medication warning Per nursing clinical judgement, provider to review and approve the medication(s) order(s) if appropriate. Requested Prescriptions Pending Prescriptions Disp Refills venlafaxine (EFFEXOR-XR) 75 MG CAPSULE SR 24 HR [Pharmacy Med Name: VENLAFAXINE HCL ER 75 MG CAP] 90 Capsule 3 Sig: TAKE 1 CAPSULE BY MOUTH EVERY DAY SNRI (6 Month Refill Only) Protocol Passed - 12/05/2023 12:38 AM Passed - Visit with relevant provider in past 6 months or upcoming 90 days Recent Visits Date Type Provider Dept 10/22/23 Office Visit Michelle Erazo PAC [facility] 07/22/23 Office Visit Jahaira Webb MD [facility] 06/18/23 Office Visit Jahaira Webb MD [facility] Showing recent visits within past 182 days and meeting all other requirements Future Appointments Date Type Provider Dept 02/24/24 Appointment Michelle Erazo PAC [facility] Showing future appointments within next 90 days and meeting all other requirements Passed - Has an encounter in the past 6 months with a depression or anxiety visit diagnosis Passed - Patient has established therapy with Serotonin-Norepinephrine Reuptake Inhibitors for at least 6 months documented in this encounter Plan of Treatment Upcoming Encounters Date Type Department Care Team (Late st Contact Info) Description 07/07/2025 3:30 PM PULPWOOD CONTRACTOR Office Visit [facility] - Family Medicine - [place] [address] [place] [address] Michelle Erazo PAC [address] [place] [address] documented as of this encounter Goals Goal Patient Goal Type Associated Problems Recent Progress Patient-Stated? Author I want a way to cope. Learn coping mechanisms. Behavioral Health On track( 022 2:51 PM CDT) Yes Selin Mo, HAND COKE DRAWER Note: Goal Reviewed today with: patient Readiness to change: Ready to change Department associated with goal: [facility] Steps to achieve goal: [...] Visit Diagnoses Diagnosis Anxiety Anxiety state, unspecified Chronic migraine w/o aura w/o status migrainosus, not intractable Chronic migraine without aura, without mention of intractable migraine without mention of status migrainosus documented in this encounter Additional Health Concerns Assessment Noted Time PHQ-9 Depression Total Score: 6 10/22/19 24 1:16 PM PULPWOOD CONTRACTOR documented as of this encounter Care Teams Slabber Relationship Specialty Start Date End Date Michelle Erazo PAC [address] [place] [address] PCP - General Physician Garbage Worker 10/01/21 Shereen Urrutia APRN, CHEMICAL RESEARCH ENGINEER [address] [place] [phone] Obstetrics & Gynecology 07/03/18 Delfino Smith MD [address] [place] [address] Consulting Physician Pulmonary Disease 07/22/23 Rosey Martin APRN, MUSIC PUBLICIST [address] [place] [address] Nurse Practitioner Advanced Practice Nurse 06/25/23 Kathleen Godinez, RN [place] OnCall Customer Care Representative 09/01/24 10/20/24 documented as of this encounter
[2025-04-07 14:29] LABS: Alanine Aminotransferase 13 U/L (6-35); Albumin Level 3.5 g/dL (3.5-5.1); Alkaline Phosphatase 47 U/L (38-126); Anion Gap 6 mmol/L (4-12); Aspartate Amino Transferase 29 U/L (14-36); Bilirubin,Total 0.7 mg/dL (0.2-1.3); Blood Urea Nitrogen 11 mg/dL (7-17); CRP < 0.5 mg/dL (<1.0); Calcium 9.0 mg/dL (8.4-10.2); Carbon Dioxide 22 mmol/L (22-30); Chloride 110 mmol/L (98-107); Estimated CRCL calculation 42 ml/min; Estimated Glomerular Filt Rate > 60; Glucose 109 mg/dL (65-110); INR 1.1; Potassium 4.5 mmol/L (3.4-5.0); Prothrombin Time 14.2 Seconds (11.1-14.7); Sodium 138 mmol/L (137-145); Total Protein 6.1 g/dL (6.3-8.2)
[2025-04-07 14:30] LABS: Partial Thromboplastin Time 32.2 Seconds (22.3-36.8)
[2025-04-07] MEDS: LACTATED RINGERS 1,000 ML 999 ML IV CONT (14:38)
[2025-04-07] MEDS: LACTATED RINGERS 700 ML 999 ML IV CONT (14:38)
[2025-04-07 16:06] LABS: Add Urine Microscopic? YES; Appearance Urine Cloudy (Clear); Glucose Urine UA Negative (Negative); Leukocyte Esterase Ur Trace LEU/UL (Negative); Nitrate Urine Negative (Negative); Specific Grav Ur 1.017 (1.001-1.035)
[2025-04-07 17:22] LABS: Cannabinoid Screen Urine Positive (Negative)
== END 2025-04-07 17:17 | disposition home or self-care (01) ==
PROVIDERS: Emergency Provider Student in an Organized Health Care Education/Training Program
DX: R56.9 Unspecified convulsions (principal); R00.1 Bradycardia, unspecified; I45.10 Unspecified right bundle-branch block
CPT/HCPCS: 36415; 71045; 80053; 80307; 81001; 82948; 83605; 84100; 85025; 85610; 85730; 86140; 87040; 93005; 96360; 99283; J7120